=== PATIENT | male | born 1950 | race Caucasian/White ===

== ENCOUNTER → 2020-07-17 | Outpatient (CLI) | payer MEDICARE ==
[2020-07-17 11:10] LABS: Basophils # (A) 0.1 k/uL (0-0.2); Basophils % (A) 1 %; Eosinophils # (A) 0.2 k/uL (0-0.7); Eosinophils % (A) 3 %; HCT 41.2 % (39.0-53.0); HGB 13.6 gm/dL (13.0-17.5); Lymphocytes # (A) 1.5 k/uL (1.0-4.8); Lymphocytes % (A) 22 %; MCH 29.6 pg (25.0-35.0); MCV 89.7 fL (80.0-100.0); Mean Platelet Volume 7.6; Monocytes # (A) 0.3 k/uL (0-1.0); Monocytes % (A) 5 %; Neutrophils # (A) 4.7 k/uL (1.3-7.7); Neutrophils % (A) 68 %; Platelet Count 197 k/uL (150-450); RBC 4.59 m/uL (4.30-5.90); RDW 13.6 % (11.5-15.5); WBC 6.9 k/uL (3.8-10.6)
[2020-07-17 16:18] LABS: Albumin/Globulin Ratio 1.67 (1.60-3.17); Anion Gap 7.5 mmol/L (4.00-12.00); BUN/Creat Ratio 17.27 Ratio (12.00-20.00); Calcium 9.2 mg/dL (8.7-10.3); Carbon Dioxide 25.5 mmol/L (21.6-31.8); Chol/HDL Ratio 3.35; Globulin 2.4 g/dL (1.6-3.3); LDL Cholesterol,Calculated 53.4 mg/dL (0.0-131.0); Non-African American GFR(CKD) 68.1 (60.0-200.0); Total Bilirubin 0.8 mg/dL (0.3-1.2); Total Protein 6.4 g/dL (6.2-8.2); VLDL Calculation 19.6 mg/dL (5.00-40.00)
[2020-07-17 16:25] LABS: PSA Annual Screen 1.3 ng/mL (0.0-4.0)
== END | disposition home or self-care (01) ==
LOC: LABWHC1 09:37
PROVIDERS: ATTEND Family Medicine
DX: E11.9 Type 2 diabetes mellitus without complications (principal); Z12.5 Encounter for screening for malignant neoplasm of prostate
CPT/HCPCS: 80061; 80053; 85025; 83036; 36415; G0103

== ENCOUNTER 2020-11-07 14:40 | Inpatient (IN) | payer MEDICARE ==
--- NOTE | 2020-11-07 14:53 | ED ---
SOB HPI - General Source: patient Mode of arrival: wheelchair Limitations: no limitations <Shad Delaney - Last Filed: 11/07/20 17:54> <Debby Gilliam - Last Filed: 11/16/20 00:11> - General Chief Complaint: Shortness of Breath Stated Complaint: +COVID, Low O2 Time Seen by Provider: 11/07/20 14:53 - History of Present Illness Initial Comments: 70-year-old male with history of CABG, CAD, hypertension and hyperlipidemia presenting to the emergency department with chief complaint of Covid. Patient states he was tested 5 days ago and was aware yesterday that he tested positive for Covid. Patient reports nausea vomiting and diarrhea. States is also feeling fatigued with no appetite. Patient reports very mild shortness of breath on exertion. Denies any chest pain. He is not a smoker nor history of asthma or COPD. Patient does report fevers and chills. States he has been taking Tylenol for fever. Denies any cough or URI-like symptoms. (Shad Delaney) - Related Data Home Medications Medication Instructions Recorded Confirmed Atorvastatin [Lipitor] 40 mg PO DAILY 06/08/16 11/07/20 Citalopram Hydrobromide [CeleXA] 10 mg PO DAILY 06/08/16 11/07/20 Ezetimibe [Zetia] 10 mg PO DAILY 06/08/16 11/07/20 Losartan [Cozaar] 50 mg PO DAILY 06/08/16 11/07/20 Metoprolol Tartrate [Lopressor] 50 mg PO BID 06/08/16 11/07/20 Tamsulosin [Flomax] 0.4 mg PO DAILY 06/08/16 11/07/20 metFORMIN HCL [Glucophage] 500 mg PO BID 06/08/16 11/07/20 Aspirin 325 mg PO DAILY 11/07/20 11/07/20 Allergies Allergy/AdvReac Type Severity Reaction Status Date / Time No Known Allergies Allergy Verified 11/07/20 17:24 Review of Systems ROS Other: All systems not noted in ROS Statement are negative. <Shad Delaney - Last Filed: 11/07/20 17:54> ROS Other: All systems not noted in ROS Statement are negative. <Debby Gilliam - Last Filed: 11/16/20 00:11> ROS Statement: Those systems with pertinent positive or pertinent negative responses have been documented in the HPI. Past Medical History Past Medical History: Diabetes Mellitus, Hyperlipidemia, Hypertension, Myocardial Infarction ([place]) Additional Past Medical History / Comment(s): Heart attacck 2006, triple bypass, diabetes type 2 2016 Last Myocardial Infarction Date:: 2005 History of Any Multi-Drug Resistant Organisms: None Reported Past Surgical History: Coronary Bypass/CABG Additional Past Surgical History / Comment(s): Left ankle surgery 2000 Past Anesthesia/Blood Transfusion Reactions: No Reported Reaction Past Psychological History: No Psychological Hx Reported Smoking Status: Never smoker Past Alcohol Use History: None Reported Past Drug Use History: None Reported <Shad Delaney - Last Filed: 11/07/20 17:54> General Exam Limitations: no limitations General appearance: alert, in no apparent distress, obese Head exam: Present: atraumatic, normocephalic, normal inspection Eye exam: Present: normal appearance, PERRL, EOMI Pupils: Present: normal accommodation ENT exam: Present: normal exam, normal oropharynx, mucous membranes moist, TM's normal bilaterally, normal external ear exam Neck exam: Present: normal inspection, full ROM. Absent: tenderness Respiratory exam: Present: normal lung sounds bilaterally, decreased breath sounds (Mild). Absent: respiratory distress, wheezes, rales, rhonchi, stridor, accessory muscle use Cardiovascular Exam: Present: regular rate, normal rhythm, normal heart sounds. Absent: systolic murmur, diastolic murmur GI/Abdominal exam: Present: soft. Absent: distended, tenderness, guarding, rebound Extremities exam: Present: normal inspection, full ROM, normal capillary refill, other (+2 ulnar and radial pulses bilaterally. +2 dorsalis pedis and posterior tibials bilateral.). Absent: tenderness, pedal edema, joint swelling, calf tenderness Back exam: Present: normal inspection, full ROM. Absent: tenderness, CVA tenderness (R), CVA tenderness (L) Neurological exam: Present: alert, oriented X3, normal gait Psychiatric exam: Present: normal affect, normal mood Skin exam: Present: warm, dry, intact, normal color <Shad Delaney - Last Filed: 11/07/20 17:54> Course Vital Signs 11/07/20 11/07/20 11/07/20 14:43 14:50 15:05 Temperature 101.7 F H 101.7 F H 101.7 F H Pulse Rate 89 89 90 Respiratory 18 18 18 Rate Blood Pressure 116/79 143/81 142/71 O2 Sat by Pulse 89 L 95 95 Oximetry 11/07/20 11/07/20 11/07/20 15:20 15:35 15:52 Temperature 100.7 F H 100.5 F H 102.1 F H Pulse Rate 92 92 93 Respiratory 18 18 18 Rate Blood Pressure 132/78 143/70 129/91 O2 Sat by Pulse 96 93 L 96 Oximetry 11/07/20 11/07/20 17:16 19:05 Temperature 99.4 F 98.5 F Pulse Rate 79 77 Respiratory 18 18 Rate Blood Pressure 134/67 124/75 O2 Sat by Pulse 96 95 Oximetry Medical Decision Making - Lab Data Result diagrams: 11/07/20 15:18 11/07/20 15:18 <Shad Delaney - Last Filed: 11/07/20 17:54> - Lab Data Result diagrams: 11/14/20 03:41 11/14/20 03:41 <Debby Gilliam - Last Filed: 11/16/20 00:11> - Medical Decision Making 70-year-old male with history of CABG, CAD, hypertension and hyperlipidemia presenting to the emergency department with chief complaint of Covid. On physical examination, patient is clear to auscultation. Patient is 89% on room air. He only reports mild shortness of breath but no chest pain. Initial troponin of 1.01. CT of the chest shows no signs of a pulmonary embolism but there is patchy opacities with high likelihood of Covid pneumonia. CBC, CMP unremarkable. Coags within normal limits. Patient has elevated LDH and CRP. Patient will be admitted for further medical management. Case discussed with Admitting is DR lori Clemente on consult (Shad Delaney) I was available for consultation in the emergency department. The history and physical exam were done by the midlevel provider. I was consulted for this patients care. I reviewed the case with the midlevel provider and based on their presentation of the patient, I agree with the assessment, medical decision making and plan of care as documented. Chart was dictated using [employer] dictation software. Attempts were made to correct any dictation errors however some typographical errors may persist. Patient was seen during a national state of emergency due to the Covid-19 pandemic. (Debby Gilliam) - Lab Data Lab Results 11/07/20 11/07/20 11/07/20 Range/Units 15:18 15:18 15:18 WBC 5.9 (3.8-10.6) k/uL RBC 4.71 (4.30-5.90) m/uL Hgb 14.2 (13.0-17.5) gm/dL Hct 40.9 (39.0-53.0) % MCV 86.8 (80.0-100.0) fL MCH 30.1 (25.0-35.0) pg MCHC 34.6 (31.0-37.0) g/dL RDW 13.2 (11.5-15.5) % Plt Count 153 (150-450) k/uL MPV 7.4 Neutrophils % 80 % Lymphocytes % 13 % Monocytes % 6 % Eosinophils % 0 % Basophils % 0 % Neutrophils # 4.7 (1.3-7.7) k/uL Lymphocytes # 0.7 L (1.0-4.8) k/uL Monocytes # 0.3 (0-1.0) k/uL Eosinophils # 0.0 (0-0.7) k/uL Basophils # 0.0 (0-0.2) k/uL PT 10.5 (9.0-12.0) sec INR 1.0 (<1.2) APTT 25.7 (22.0-30.0) sec D-Dimer 1.01 H (<0.60) mg/L FEU Sodium 135 L (137-145) mmol/L Potassium 3.9 (3.5-5.1) mmol/L Chloride 104 (98-107) mmol/L Carbon Dioxide 26 (22-30) mmol/L Anion Gap 5 mmol/L BUN 17 (9-20) mg/dL Creatinine 0.79 (0.66-1.25) mg/dL Est GFR (CKD-EPI)AfAm >90 (>60 ml/min/1.73 sqM) Est GFR (CKD-EPI)NonAf >90 (>60 ml/min/1.73 sqM) Glucose 163 H (74-99) mg/dL Plasma Lactic Acid Jewel (0.7-2.0) mmol/L Calcium 8.5 (8.4-10.2) mg/dL Magnesium 1.6 (1.6-2.3) mg/dL Ferritin 417.3 H (22.0-322.0) ng/mL Total Bilirubin 0.7 (0.2-1.3) mg/dL AST 38 (17-59) U/L ALT 30 (4-49) U/L Alkaline Phosphatase 52 (38-126) U/L Lactate Dehydrogenase 842 H (313-618) U/L C-Reactive Protein 142.0 H (<10.0) mg/L Total Protein 6.9 (6.3-8.2) g/dL Albumin 3.6 (3.5-5.0) g/dL Procalcitonin (0.02-0.09) ng/mL 11/07/20 11/07/20 Range/Units 15:18 15:18 WBC (3.8-10.6) k/uL RBC (4.30-5.90) m/uL Hgb (13.0-17.5) gm/dL Hct (39.0-53.0) % MCV (80.0-100.0) fL MCH (25.0-35.0) pg MCHC (31.0-37.0) g/dL RDW (11.5-15.5) % Plt Count (150-450) k/uL MPV Neutrophils % % Lymphocytes % % Monocytes % % Eosinophils % % Basophils % % Neutrophils # (1.3-7.7) k/uL Lymphocytes # (1.0-4.8) k/uL Monocytes # (0-1.0) k/uL Eosinophils # (0-0.7) k/uL Basophils # (0-0.2) k/uL PT (9.0-12.0) sec INR (<1.2) APTT (22.0-30.0) sec D-Dimer (<0.60) mg/L FEU Sodium (137-145) mmol/L Potassium (3.5-5.1) mmol/L Chloride (98-107) mmol/L Carbon Dioxide (22-30) mmol/L Anion Gap mmol/L BUN (9-20) mg/dL Creatinine (0.66-1.25) mg/dL Est GFR (CKD-EPI)AfAm (>60 ml/min/1.73 sqM) Est GFR (CKD-EPI)NonAf (>60 ml/min/1.73 sqM) Glucose (74-99) mg/dL Plasma Lactic Acid Jewel 1.3 (0.7-2.0) mmol/L Calcium (8.4-10.2) mg/dL Magnesium (1.6-2.3) mg/dL Ferritin (22.0-322.0) ng/mL Total Bilirubin (0.2-1.3) mg/dL AST (17-59) U/L ALT (4-49) U/L Alkaline Phosphatase (38-126) U/L Lactate Dehydrogenase (313-618) U/L C-Reactive Protein (<10.0) mg/L Total Protein (6.3-8.2) g/dL Albumin (3.5-5.0) g/dL Procalcitonin 0.11 H (0.02-0.09) ng/mL - EKG Data EKG Comments: Sinus rhythm, Q waves in lead 3 Ventricular rate 91, AR 144, QRS 94, QTC 437. (Shad Delaney) Disposition Is patient prescribed a controlled substance at d/c from ED?: No Time of Disposition: 17:57 <Shad Delaney - Last Filed: 11/07/20 17:54> <Debby Gilliam - Last Filed: 11/16/20 00:11> Clinical Impression: Pneumonia due to COVID-19 virus, Hypoxemia Disposition: ADMITTED IP TO THIS HOSP Condition: Good
[2020-11-07] MEDS ORDERED: ACETAMINOPHEN TAB 500 MG TAB PO STA (14:56)
[2020-11-07 15:30] LABS: Basophils % (A) 0 %; Eosinophils % (A) 0 %; HCT 40.9 % (39.0-53.0); HGB 14.2 gm/dL (13.0-17.5); Lymphocytes # (A) 0.7 k/uL (1.0-4.8); Lymphocytes % (A) 13 %; MCH 30.1 pg (25.0-35.0); MCHC 34.6 g/dL (31.0-37.0); MCV 86.8 fL (80.0-100.0); Mean Platelet Volume 7.4; Monocytes # (A) 0.3 k/uL (0-1.0); Monocytes % (A) 6 %; Neutrophils # (A) 4.7 k/uL (1.3-7.7); Neutrophils % (A) 80 %; Platelet Count 153 k/uL (150-450); RBC 4.71 m/uL (4.30-5.90); RDW 13.2 % (11.5-15.5); WBC 5.9 k/uL (3.8-10.6)
[2020-11-07 15:45] LABS: ALT 30 U/L (4-49); AST 38 U/L (17-59); African American GFR (CKD) >90 (>60 ml/min/1.73 sqM); Albumin 3.6 g/dL (3.5-5.0); Alkaline Phosphatase 52 U/L (38-126); Anion Gap 5 mmol/L; Blood Urea Nitrogen 17 mg/dL (9-20); Calcium 8.5 mg/dL (8.4-10.2); Carbon Dioxide 26 mmol/L (22-30); Chloride 104 mmol/L (98-107); Glucose 163 mg/dL (74-99); LDH 842 U/L (313-618); Magnesium 1.6 mg/dL (1.6-2.3); Non-African American GFR(CKD) >90 (>60 ml/min/1.73 sqM); Potassium 3.9 mmol/L (3.5-5.1); Sodium 135 mmol/L (137-145); Total Bilirubin 0.7 mg/dL (0.2-1.3); Total Protein 6.9 g/dL (6.3-8.2)
[2020-11-07 15:49] LABS: Partial Thromboplastin Time 25.7 sec (22.0-30.0); Prothrombin Time 10.5 sec (9.0-12.0)
[2020-11-07 15:52] LABS: D-Dimer 1.01 mg/L FEU (<0.60)
--- NOTE | 2020-11-07 15:52 | XR ---
EXAM: XR Chest, 1 View CLINICAL HISTORY: ITS.REASON XR Reason: Suspected COVID-19 pneumonia TECHNIQUE: Frontal view of the chest. COMPARISON: None FINDINGS: Hardware: None. Lungs/pleura: Patchy opacities predominantly in the mid and lower lungs. Small pleural effusions are not excluded. Heart/mediastinum: Enlargement of the cardiac silhouette. Atherosclerotic calcifications in the aorta. Soft tissues: Unremarkable. Bones: No acute fracture. Degenerative changes of the spine. Upper abdomen: Normal. IMPRESSION: Patchy opacities predominantly in the mid and lower lungs which may represent an infectious/inflammatory process versus edema. Small pleural effusions are not excluded.
--- NOTE | 2020-11-07 17:13 | CT ---
EXAM: CT Angiography Chest With Intravenous Contrast CLINICAL HISTORY: ITS.REASON CT Reason: pe suspected, +dimer TECHNIQUE: Axial computed tomographic angiography images of the chest with intravenous contrast. CTDI is 18.2 mGy and DLP is 599 mGy-cm. This CT exam was performed using one or more of the following dose reduction techniques: automated exposure control, adjustment of the mA and/or kV according to patient size, and/or use of iterative reconstruction technique. MIP reconstructed images were created and reviewed. COMPARISON: Chest radiograph on 11/07/2020 FINDINGS: Pulmonary arteries: No central or large pulmonary embolus identified. Evaluation of the pulmonary arterial branches is limited by motion artifact. Aorta: No aortic aneurysm or dissection. Lungs: Patchy groundglass opacities and densities throughout the for Covid 19 infection. Pleural space: Unremarkable. No significant effusion. No pneumothorax. Heart: Median sternotomy and CABG changes. No significant pericardial effusion. No evidence of RV dysfunction. Mediastinum: Nonspecific prominent mediastinal lymph nodes. Bones/joints: Degenerative changes of the spine. No acute fracture. No dislocation. Soft tissues: Unremarkable. Lymph nodes: Unremarkable. No enlarged lymph nodes. Liver: Small hepatic cysts. IMPRESSION: 1. No central or large pulmonary embolus identified. Evaluation of the pulmonary arterial branches is limited by motion artifact. 2. No aortic aneurysm or dissection. 3. Patchy ground-glass opacities and densities throughout the for Covid 19 infection.
[2020-11-07] MEDS ORDERED: NALOXONE 0.4 MG/ML 1 ML VIAL IV PRN (17:51)
[2020-11-07] MEDS ORDERED: HYDROmorphone 1 MG/ML 1 ML SYRINGE IVP PRN (17:51)
[2020-11-07] MEDS ORDERED: MORPHINE SULFATE 4 MG/ML SYRINGE IV PRN (17:51)
[2020-11-07] MEDS ORDERED: LORazepam 2 MG/ML INJ IV PRN (17:51)
[2020-11-07] MEDS ORDERED: ONDANSETRON 4 MG/2 ML VIAL IVP PRN (17:51)
[2020-11-07] MEDS ORDERED: HYDROmorphone 0.5 MG/0.5 ML SYRINGE IVP PRN (17:51)
[2020-11-07] MEDS: SODIUM CHLORIDE 0.9% 1,000 ML IV SCH (19:15)
[2020-11-07 21:24] LABS: Ferritin 417.3 ng/mL (22.0-322.0)
[2020-11-08] MEDS: ACETAMINOPHEN TAB 325 MG TAB PO PRN (05:51)
[2020-11-08] MEDS: SODIUM CHLORIDE 0.9% 1,000 ML IV SCH (08:40)
[2020-11-08] MEDS: TAMSULOSIN 0.4 MG CAP.ER.24H PO SCH (09:56)
[2020-11-08] MEDS: dexAMETHasone 2 MG TAB PO SCH (09:57)
[2020-11-08] MEDS: ENOXAPARIN 40 MG/0.4 ML SYRINGE SQ SCH (09:57)
[2020-11-08] MEDS: CITALOPRAM HYDROBROMIDE 10 MG TAB PO SCH (09:57)
[2020-11-08] MEDS: METOPROLOL TARTRATE 50 MG TAB PO SCH ×2 (09:57→22:20)
--- NOTE | 2020-11-08 12:14 | P.HPIM ---
History of Present Illness Patient is pleasant 70-year-old male came in with complaints of shortness of breath presently on 2 L of oxygen. Patient was having symptoms since last Tuesday and was diagnosed with Covid 19 last Tuesday. Patient is still having fevers. Patient was having nausea vomiting as well as diarrhea which improved at this time. Patient is comparing of cough and generalized body aches. Review of Systems REVIEW OF SYSTEMS: CONSTITUTIONAL: As mentioned in HPI HEENT: No recent visual problems or hearing problems. Denied any sore throat. CARDIOVASCULAR: No chest pain, orthopnea, PND, no palpitations, no syncope. PULMONARY: no hemoptysis. GASTROINTESTINAL: No diarrhea, no nausea, no vomiting, no abdominal pain. NEUROLOGICAL: No headaches, no weakness, no numbness. HEMATOLOGICAL: Denies any bleeding or petechiae. GENITOURINARY: Denies any burning micturition, frequency, or urgency. MUSCULOSKELETAL/RHEUMATOLOGICAL: Denies any joint pain, swelling, or any muscle pain. ENDOCRINE: Denies any polyuria or polydipsia. The rest of the 14-point review of systems is negative. Past Medical History Past Medical History: Diabetes Mellitus, Hyperlipidemia, Hypertension, Myocardial Infarction ([place]) Additional Past Medical History / Comment(s): Heart attack 2006, triple bypass, diabetes type 2 2016 Last Myocardial Infarction Date:: 2005 History of Any Multi-Drug Resistant Organisms: None Reported Past Surgical History: Coronary Bypass/CABG Additional Past Surgical History / Comment(s): Left ankle surgery 2000 Past Anesthesia/Blood Transfusion Reactions: No Reported Reaction Past Psychological History: No Psychological Hx Reported Smoking Status: Never smoker Past Alcohol Use History: None Reported Additional Past Alcohol Use History / Comment(s): none Past Drug Use History: None Reported Medications and Allergies Home Medications Medication Instructions Recorded Confirmed Type Atorvastatin [Lipitor] 40 mg PO DAILY 06/08/16 11/07/20 History Citalopram Hydrobromide [CeleXA] 10 mg PO DAILY 06/08/16 11/07/20 History Ezetimibe [Zetia] 10 mg PO DAILY 06/08/16 11/07/20 History Losartan [Cozaar] 50 mg PO DAILY 06/08/16 11/07/20 History Metoprolol Tartrate [Lopressor] 50 mg PO BID 06/08/16 11/07/20 History Tamsulosin [Flomax] 0.4 mg PO DAILY 06/08/16 11/07/20 History metFORMIN HCL [Glucophage] 500 mg PO BID 06/08/16 11/07/20 History Aspirin 325 mg PO DAILY 11/07/20 11/07/20 History Allergies Allergy/AdvReac Type Severity Reaction Status Date / Time No Known Allergies Allergy Verified 11/07/20 17:24 Physical Exam Vitals: Vital Signs Temp Pulse Pulse Resp BP BP Pulse Ox 11/08/20 05:00 100.6 F H 86 18 124/63 91 L 11/07/20 20:00 98.1 F 87 18 126/76 93 L 11/07/20 19:35 18 11/07/20 19:05 98.5 F 77 18 124/75 95 11/07/20 17:16 99.4 F 79 18 134/67 96 11/07/20 15:52 102.1 F H 93 18 129/91 96 11/07/20 15:35 100.5 F H 92 18 143/70 93 L 11/07/20 15:20 100.7 F H 92 18 132/78 96 11/07/20 15:05 101.7 F H 90 18 142/71 95 11/07/20 14:50 101.7 F H 89 18 143/81 95 11/07/20 14:43 101.7 F H 89 18 116/79 89 L Intake and Output 11/07/20 11/08/20 11/08/20 22:59 06:59 14:59 Intake Total 1400 Balance 1400 Intake: Intake, IV Titration 900 Amount Sodium Chloride 0.9% 1, 900 000 ml @ 75 mls/hr IV . [id number] [facility] Rx#:[id number] Oral 500 Other: Voiding Method Toilet Toilet Urinal Urinal # Voids 3 Weight 102.058 kg PHYSICAL EXAMINATION: GENERAL: The patient is alert and oriented x3, not in any acute distress. Well developed, well nourished. HEENT: Pupils are round and equally reacting to light. EOMI. No scleral icterus. No conjunctival pallor. Normocephalic, atraumatic. No pharyngeal erythema. No thyromegaly. CARDIOVASCULAR: S1 and S2 present. No murmurs, rubs, or gallops. PULMONARY: Chest is clear to auscultation, no wheezing or crackles. ABDOMEN: Soft, nontender, nondistended, normoactive bowel sounds. No palpable organomegaly. MUSCULOSKELETAL: No joint swelling or deformity. EXTREMITIES: No cyanosis, clubbing, or pedal edema. NEUROLOGICAL: Gross neurological examination did not reveal any focal deficits. SKIN: No rashes. Note: Because of COVID 19 isolation, some of the history and physical exam findings are indirect and obtained from nursing staff, and other physician examinations to avoid unnecessary contact with the patient. Results CBC & Chem 7: 11/07/20 15:18 11/07/20 15:18 Labs: Abnormal Lab Results - Last 24 Hours (Table) 11/07/20 11/07/20 11/07/20 Range/Units 15:18 15:18 15:18 Lymphocytes # 0.7 L (1.0-4.8) k/uL D-Dimer 1.01 H (<0.60) mg/L FEU Sodium 135 L (137-145) mmol/L Glucose 163 H (74-99) mg/dL Ferritin 417.3 H (22.0-322.0) ng/mL Lactate Dehydrogenase 842 H (313-618) U/L C-Reactive Protein 142.0 H (<10.0) mg/L Procalcitonin (0.02-0.09) ng/mL 11/07/20 Range/Units 15:18 Lymphocytes # (1.0-4.8) k/uL D-Dimer (<0.60) mg/L FEU Sodium (137-145) mmol/L Glucose (74-99) mg/dL Ferritin (22.0-322.0) ng/mL Lactate Dehydrogenase (313-618) U/L C-Reactive Protein (<10.0) mg/L Procalcitonin 0.11 H (0.02-0.09) ng/mL Thrombosis Risk Factor Assmnt - Choose All That Apply Any of the Below Risk Factors Present?: Yes Each Factor Represents 1 point: Obesity (BMI >25) Other Risk Factors: Yes Each Risk Factor Represents 2 Points: Age 61-74 years Other congenital or acquired thrombophilia - If yes, enter type in comment: No Thrombosis Risk Factor Assessment Total Risk Factor Score: 3 Thrombosis Risk Factor Assessment Level: Moderate Risk Assessment and Plan Plan: -Shortness of breath: Secondary to covid 19 pneumonia. Patient will continued on Decadron pulmonary evaluated the patient will monitor inflammatory markers which are present elevated patient has elevated d-dimer to rule out pulmonary embolism patient is on Lovenox at this time. -Type 2 diabetes mellitus: Patient did sugars are expected to go because of Decadron patient will be started on sliding scale metformin will be held -Hyperlipidemia -Hypertension -Coronary artery disease with bypass surgery in the past For above-mentioned chronic problems patient will be started and continued on appropriate home medications.
--- NOTE | 2020-11-08 12:42 | P.CNPUL ---
History of Present Illness Consult date: 11/08/20 Requesting physician: Krissy Laura Reason for consult: other (CoVID 19 infection) Chief complaint: Weakness, nausea, vomiting, diarrhea History of present illness: This is a very pleasant 70-year-old gentleman with a known history of coronary artery disease with previous coronary artery bypass grafting, diabetes mellitus, hypertension, hyperlipidemia, lifelong nonsmoker. 6 days ago the patient had developed nausea, vomiting, diarrhea. He also had complaints of fatigue. Poor appetite. Mild shortness of breath with a dry nonproductive cough. He did test positive for CoVID 19. He is seen today in consultation on the regular medical floor. He is currently resting quite comfortably in bed. He is maintaining O2 saturations in the low 90s on 2 L/m per nasal cannula. Temperature 100.6. Blood pressure stable. White count 5.9. Hemoglobin 14.2. Lymphocytes 0.7. INR 1.0. D-dimer 1.01. Sodium 135. Potassium 3.9. Creatinine 0.79. LDH 842. C-reactive protein 142. Pro-calcitonin 0.11. Chest x-ray reveals patchy opacities in the mid and lower lungs bilaterally. CT angiogram revealed no pulmonary emboli. Patchy groundglass opacities and densities throughout typical of CoVID 19 pneumonitis. Review of Systems REVIEW OF SYSTEMS: CONSTITUTIONAL: Fatigue, weakness. Denies any recent significant weight loss or weight gain. EYES: Denies change in vision. EARS, NOSE, MOUTH, THROAT: Denies headaches, denies sore throat. CARDIOVASCULAR: Denies chest pain, palpitations or syncopal episodes. RESPIRATORY: Positive for shortness of breath, cough, congestion no hemoptysis. GASTROINTESTINAL: Positive for nausea, vomiting, diarrhea, poor appetite GENITOURINARY: Denies hematuria, denies infections. MUSKULOSKELETAL: Denies pain, denies swelling. INTEGUMENTARY: Denies rash, denies eczema. NEUROLOGICAL: Denies recent memory loss, no recent seizure activity. PSYCHIATRIC: Denies anxiety, denies depression. HEMATOLOGIC/LYMPHATIC: Denies anemia, denies enlarged lymph nodes. Past Medical History Past Medical History: Diabetes Mellitus, Hyperlipidemia, Hypertension, Myocardial Infarction ([place]) Additional Past Medical History / Comment(s): Heart attack 2006, triple bypass, diabetes type 2 2016 Last Myocardial Infarction Date:: 2005 History of Any Multi-Drug Resistant Organisms: None Reported Past Surgical History: Coronary Bypass/CABG Additional Past Surgical History / Comment(s): Left ankle surgery 2000 Past Anesthesia/Blood Transfusion Reactions: No Reported Reaction Past Psychological History: No Psychological Hx Reported Smoking Status: Never smoker Past Alcohol Use History: None Reported Additional Past Alcohol Use History / Comment(s): none Past Drug Use History: None Reported Medications and Allergies Home Medications Medication Instructions Recorded Confirmed Type Atorvastatin [Lipitor] 40 mg PO DAILY 06/08/16 11/07/20 History Citalopram Hydrobromide [CeleXA] 10 mg PO DAILY 06/08/16 11/07/20 History Ezetimibe [Zetia] 10 mg PO DAILY 06/08/16 11/07/20 History Losartan [Cozaar] 50 mg PO DAILY 06/08/16 11/07/20 History Metoprolol Tartrate [Lopressor] 50 mg PO BID 06/08/16 11/07/20 History Tamsulosin [Flomax] 0.4 mg PO DAILY 06/08/16 11/07/20 History metFORMIN HCL [Glucophage] 500 mg PO BID 06/08/16 11/07/20 History Aspirin 325 mg PO DAILY 11/07/20 11/07/20 History Allergies Allergy/AdvReac Type Severity Reaction Status Date / Time No Known Allergies Allergy Verified 11/07/20 17:24 Physical Exam Vitals: Vital Signs Temp Pulse Pulse Resp BP BP Pulse Ox 11/08/20 05:00 100.6 F H 86 18 124/63 91 L 11/07/20 20:00 98.1 F 87 18 126/76 93 L 11/07/20 19:35 18 11/07/20 19:05 98.5 F 77 18 124/75 95 11/07/20 17:16 99.4 F 79 18 134/67 96 11/07/20 15:52 102.1 F H 93 18 129/91 96 11/07/20 15:35 100.5 F H 92 18 143/70 93 L 11/07/20 15:20 100.7 F H 92 18 132/78 96 11/07/20 15:05 101.7 F H 90 18 142/71 95 11/07/20 14:50 101.7 F H 89 18 143/81 95 11/07/20 14:43 101.7 F H 89 18 116/79 89 L Intake and Output 11/07/20 11/08/20 11/08/20 22:59 06:59 14:59 Intake Total 1400 Balance 1400 Intake: Intake, IV Titration 900 Amount Sodium Chloride 0.9% 1, 900 000 ml @ 75 mls/hr IV . [id number] [facility] Rx#:[id number] Oral 500 Other: Voiding Method Toilet Toilet Urinal Urinal # Voids 3 Weight 102.058 kg GENERAL EXAM: Alert, active, very pleasant 70-year-old gentleman, on 2 L nasal cannula, comfortable in no apparent distress. HEAD: Normocephalic. EYES: Normal reaction of pupils, equal size. NOSE: Clear with pink turbinates. THROAT: No erythema or exudates. NECK: No masses, no JVD. CHEST: No chest wall deformity. LUNGS: Equal air entry with crackles in the bilateral posterior bases. CVS: S1 and S2 normal with no audible murmur, regular rhythm. ABDOMEN: No hepatosplenomegaly, normal bowel sounds, no guarding or rigidity. SPINE: No scoliosis or deformity SKIN: No rashes CENTRAL NERVOUS SYSTEM: No focal deficits, tone is normal in all 4 extremities. EXTREMITIES: There is no peripheral edema. No clubbing, no cyanosis. Peripheral pulses are intact. Results - Laboratory Findings CBC and BMP: 11/07/20 15:18 11/07/20 15:18 PT/INR, D-dimer PT 10.5 sec (9.0-12.0) 11/07/20 15:18 INR 1.0 (<1.2) 11/07/20 15:18 D-Dimer 1.01 mg/L FEU (<0.60) H 11/07/20 15:18 Abnormal lab findings: Abnormal Labs 11/07/20 11/07/20 11/07/20 15:18 15:18 15:18 Lymphocytes # 0.7 L D-Dimer 1.01 H Sodium 135 L Glucose 163 H Ferritin 417.3 H Lactate Dehydrogenase 842 H C-Reactive Protein 142.0 H Procalcitonin 11/07/20 15:18 Lymphocytes # D-Dimer Sodium Glucose Ferritin Lactate Dehydrogenase C-Reactive Protein Procalcitonin 0.11 H - Diagnostic Findings Chest x-ray: image reviewed CT scan - chest: image reviewed Assessment and Plan Assessment: 1 CoVID 19 infection with nausea, vomiting, diarrhea 2 Acute hypoxic respiratory failure secondary to CoVID 19 pneumonitis 3 Febrile illness secondary to above 4 Elevated inflammatory markers secondary to above 5 History of coronary artery disease with previous coronary artery bypass grafting 6 Hyperlipidemia 7 Hypertension 8 Diabetes mellitus Plan: The patient was seen and evaluated by Dr. Miles Chest x-ray, CAT scan of the chest and labs reviewed We will initiate Remdesivir Continue Decadron, Lovenox Add Pepcid, melatonin, vitamin C, vitamin D, zinc Follow-up inflammatory markers and chest x-ray in a.m. We will continue to follow and make further recommendations based on his clinical status I, the cosigning physician, performed a history & physical examination of the patient. Lungs sounds echoes in the bilateral posterior bases. Maintaining good O2 saturations in the 90s on 2 L/m per nasal cannula. I discussed the assessment and plan of care with my nurse practitioner, Angélica Rizzo. I attest to the above consultation as dictated by her. Time with Patient: Greater than 30
[2020-11-08] MEDS ORDERED: REMDESIVIR 200 MG in SODIUM CHLORIDE 0.9% 250 ML IVPB ONE (13:00)
[2020-11-08] MEDS: INSULIN ASPART (NovoLOG) 100 UNIT/ML VIAL SQ SCH ×3 (13:20→22:21)
[2020-11-08] MEDS: FAMOTIDINE 20 MG TAB PO SCH (22:20)
[2020-11-08] MEDS: MELATONIN 5 MG TABLET PO SCH (22:21)
[2020-11-09] MEDS: SODIUM CHLORIDE 0.9% 1,000 ML IV SCH ×3 (03:24→22:23)
[2020-11-09 06:44] LABS: HCT 36.1 % (39.0-53.0); HGB 12.9 gm/dL (13.0-17.5); MCH 31.4 pg (25.0-35.0); MCHC 35.8 g/dL (31.0-37.0); MCV 87.6 fL (80.0-100.0); Mean Platelet Volume 8.2; Platelet Count 145 k/uL (150-450); RBC 4.12 m/uL (4.30-5.90); RDW 13.2 % (11.5-15.5); WBC 10.2 k/uL (3.8-10.6)
[2020-11-09] MEDS: INSULIN ASPART (NovoLOG) 100 UNIT/ML VIAL SQ SCH ×4 (07:52→22:18)
[2020-11-09] MEDS: ASCORBIC ACID 500 MG TAB PO SCH (07:53)
[2020-11-09] MEDS: ATORVASTATIN 40 MG TAB PO SCH (07:53)
[2020-11-09] MEDS: ASPIRIN 325 MG TAB PO SCH (07:53)
[2020-11-09] MEDS: ENOXAPARIN 40 MG/0.4 ML SYRINGE SQ SCH (07:54)
[2020-11-09] MEDS: CHOLECALCIFEROL 1,000 UNIT TAB PO SCH (07:54)
[2020-11-09] MEDS: CITALOPRAM HYDROBROMIDE 10 MG TAB PO SCH (07:54)
[2020-11-09] MEDS: dexAMETHasone 2 MG TAB PO SCH (07:54)
[2020-11-09] MEDS: FAMOTIDINE 20 MG TAB PO SCH ×2 (07:55→22:21)
[2020-11-09] MEDS: EZETIMIBE 10 MG TAB PO SCH (07:55)
[2020-11-09] MEDS: TAMSULOSIN 0.4 MG CAP.ER.24H PO SCH (07:55)
[2020-11-09] MEDS: METOPROLOL TARTRATE 50 MG TAB PO SCH ×2 (07:55→22:22)
[2020-11-09] MEDS: ZINC SULFATE 220 MG CAP PO SCH (07:55)
[2020-11-09] MEDS: LOSARTAN 50 MG TAB PO SCH (07:55)
[2020-11-09 09:40] LABS: Glucose,Whole Blood 252 mg/dL (75-99)
[2020-11-09 09:40] LABS: Glucose,Whole Blood 192 mg/dL (75-99)
[2020-11-09 09:41] LABS: Glucose,Whole Blood 159 mg/dL (75-99)
[2020-11-09 09:41] LABS: Glucose,Whole Blood 196 mg/dL (75-99)
[2020-11-09 09:46] LABS: African American GFR (CKD) 104.9 (60.0-200.0); Anion Gap 10.5 mmol/L (4.00-12.00); BUN/Creat Ratio 26.25 Ratio (12.00-20.00); Calcium 8.4 mg/dL (8.7-10.3); Carbon Dioxide 24.5 mmol/L (21.6-31.8); Non-African American GFR(CKD) 90.5 (60.0-200.0); Potassium 3.8 mmol/L (3.5-5.5)
--- NOTE | 2020-11-09 11:19 | P.PN ---
Subjective 70-year-old male came in with complaints of shortness of breath presently on 2 L of oxygen. Patient was having symptoms since last Tuesday and was diagnosed with Covid 19 last Tuesday. Patient is still having fevers. Patient was having nausea vomiting as well as diarrhea which improved at this time. Patient is comparing of cough and generalized body aches. 11/09/2020 Presently on 4 L of oxygen although feels better. Patient is presently on Remdesivir day 2 Constitutional: Denied any fatigue denied any fever. Cardio vascular: denied any chest pain, palpitations Gastrointestinal denied any nausea vomiting Pulmonary: Denied any shortness of breath cough Neurologic denied any new focal deficits All inpatient medications were reviewed and appropriate changes in these medications as dictated in the interval history and assessment and plan. Objective - Vital Signs Vital signs: Vital Signs Temp 97.9 F 11/09/20 05:57 Pulse 86 11/09/20 08:25 Resp 20 11/09/20 08:25 BP 126/56 11/09/20 05:57 Pulse Ox 89 L 11/09/20 10:16 Intake & Output 11/08/20 11/09/20 11/09/20 18:59 06:59 18:59 Intake Total 1200 Balance 1200 Intake: Blood Product 1200 Other: Voiding Method Toilet Toilet Toilet Urinal Urinal Urinal # Voids 3 2 2 - Exam PHYSICAL EXAMINATION: GENERAL: The patient is alert and oriented x3, not in any acute distress. Well developed, well nourished. HEENT: Pupils are round and equally reacting to light. EOMI. No scleral icterus. No conjunctival pallor. Normocephalic, atraumatic. No pharyngeal erythema. No thyromegaly. CARDIOVASCULAR: S1 and S2 present. No murmurs, rubs, or gallops. PULMONARY: Chest is clear to auscultation, no wheezing or crackles. ABDOMEN: Soft, nontender, nondistended, normoactive bowel sounds. No palpable organomegaly. MUSCULOSKELETAL: No joint swelling or deformity. EXTREMITIES: No cyanosis, clubbing, or pedal edema. NEUROLOGICAL: Gross neurological examination did not reveal any focal deficits. SKIN: No rashes. - Labs CBC & Chem 7: 11/09/20 05:59 11/09/20 05:59 Labs: Abnormal Lab Results - Last 24 Hours (Table) 11/08/20 11/08/20 11/08/20 Range/Units 12:52 17:17 21:14 RBC (4.30-5.90) m/uL Hgb (13.0-17.5) gm/dL Hct (39.0-53.0) % Plt Count (150-450) k/uL BUN/Creatinine Ratio (12.00-20.00) Ratio Glucose (70-110) mg/dL POC Glucose (mg/dL) 192 H 252 H 196 H (75-99) mg/dL Calcium (8.7-10.3) mg/dL 11/09/20 11/09/20 11/09/20 Range/Units 05:59 05:59 07:38 RBC 4.12 L (4.30-5.90) m/uL Hgb 12.9 L (13.0-17.5) gm/dL Hct 36.1 L (39.0-53.0) % Plt Count 145 L (150-450) k/uL BUN/Creatinine Ratio 26.25 H (12.00-20.00) Ratio Glucose 158 H (70-110) mg/dL POC Glucose (mg/dL) 159 H (75-99) mg/dL Calcium 8.4 L (8.7-10.3) mg/dL Microbiology - Last 24 Hours (Table) 11/07/20 15:24 Blood Culture - Preliminary Blood No Growth after 24 hours 11/07/20 15:18 Blood Culture - Preliminary Blood No Growth after 24 hours Assessment and Plan Plan: -Shortness of breath acute hypoxic respiratory failure: Secondary to covid 19 pneumonia. Patient will continued on Decadron pulmonary evaluated the patient will monitor inflammatory markers which are present elevated patient has elevated d-dimer to rule out pulmonary embolism patient is on Lovenox at this time. And patient is also on Remdesivir -Type 2 diabetes mellitus: Blood sugars are bit elevated because of Decadron patient will be started on sliding scale metformin will be held -Hyperlipidemia -Hypertension -Coronary artery disease with bypass surgery in the past For above-mentioned chronic problems patient will be started and continued on appropriate home medications.
[2020-11-09 12:00] LABS: Glucose,Whole Blood 265 mg/dL (75-99)
--- NOTE | 2020-11-09 12:31 | P.PN ---
Subjective Progress Note Date: 11/09/20 Principal diagnosis: CoVID 19 infection This is a very pleasant 70-year-old gentleman with a known history of coronary artery disease with previous coronary artery bypass grafting, diabetes mellitus, hypertension, hyperlipidemia, lifelong nonsmoker. 6 days ago the patient had de veloped nausea, vomiting, diarrhea. He also had complaints of fatigue. Poor appetite. Mild shortness of breath with a dry nonproductive cough. He did test positive for CoVID 19. He is seen today in consultation on the regular medical floor. He is currently resting quite comfortably in bed. He is maintaining O2 saturations in the low 90s on 2 L/m per nasal cannula. Temperature 100.6. Blood pressure stable. White count 5.9. Hemoglobin 14.2. Lymphocytes 0.7. INR 1.0. D-dimer 1.01. Sodium 135. Potassium 3.9. Creatinine 0.79. LDH 842. C-reactive protein 142. Pro-calcitonin 0.11. Chest x-ray reveals patchy opacities in the mid and lower lungs bilaterally. CT angiogram revealed no pulmonary emboli. Patchy groundglass opacities and densities throughout typical of CoVID 19 pneumonitis. The patient is seen today 11/09/2020 in follow-up on the regular medical floor. He is awake and alert in no acute distress. He is feeling about at her today compared to yesterday. He is requiring 4 L/m per nasal cannula to maintain O2 saturation 89-90%. He is afebrile. Hemodynamically stable. Blood cultures reveal no growth. White count 10.2. Hemoglobin 12.9. Sodium 140. Potassium 3.8. Creatinine 0.8. He remains on dexamethasone, Lovenox, vitamin supplements. This is day #2 of his Remdesivir. Objective - Vital Signs Vital signs: Vital Signs Temp 97.9 F 11/09/20 05:57 Pulse 86 11/09/20 08:25 Resp 20 11/09/20 08:25 BP 126/56 11/09/20 05:57 Pulse Ox 89 L 11/09/20 10:16 Intake & Output 11/08/20 11/09/20 11/09/20 18:59 06:59 18:59 Intake Total 1200 Balance 1200 Intake: Blood Product 1200 Other: Voiding Method Toilet Toilet Toilet Urinal Urinal Urinal # Voids 3 2 2 - Exam GENERAL EXAM: Alert, very pleasant 70-year-old gentleman, on 4 L nasal cannula, comfortable in no apparent distress. HEAD: Normocephalic. EYES: Normal reaction of pupils, equal size. NOSE: Clear with pink turbinates. THROAT: No erythema or exudates. NECK: No masses, no JVD. CHEST: No chest wall deformity. LUNGS: Equal air entry with crackles in the bilateral posterior bases. CVS: S1 and S2 normal with no audible murmur, regular rhythm. ABDOMEN: No hepatosplenomegaly, normal bowel sounds, no guarding or rigidity. SPINE: No scoliosis or deformity SKIN: No rashes CENTRAL NERVOUS SYSTEM: No focal deficits, tone is normal in all 4 extremities. EXTREMITIES: There is no peripheral edema. No clubbing, no cyanosis. Peripheral pulses are intact. - Labs CBC & Chem 7: 11/09/20 05:59 11/09/20 05:59 Labs: Abnormal Lab Results - Last 24 Hours (Table) 11/08/20 11/08/20 11/08/20 Range/Units 12:52 17:17 21:14 RBC (4.30-5.90) m/uL Hgb (13.0-17.5) gm/dL Hct (39.0-53.0) % Plt Count (150-450) k/uL BUN/Creatinine Ratio (12.00-20.00) Ratio Glucose (70-110) mg/dL POC Glucose (mg/dL) 192 H 252 H 196 H (75-99) mg/dL Calcium (8.7-10.3) mg/dL 11/09/20 11/09/20 11/09/20 Range/Units 05:59 05:59 07:38 RBC 4.12 L (4.30-5.90) m/uL Hgb 12.9 L (13.0-17.5) gm/dL Hct 36.1 L (39.0-53.0) % Plt Count 145 L (150-450) k/uL BUN/Creatinine Ratio 26.25 H (12.00-20.00) Ratio Glucose 158 H (70-110) mg/dL POC Glucose (mg/dL) 159 H (75-99) mg/dL Calcium 8.4 L (8.7-10.3) mg/dL 11/09/20 Range/Units 11:53 RBC (4.30-5.90) m/uL Hgb (13.0-17.5) gm/dL Hct (39.0-53.0) % Plt Count (150-450) k/uL BUN/Creatinine Ratio (12.00-20.00) Ratio Glucose (70-110) mg/dL POC Glucose (mg/dL) 265 H (75-99) mg/dL Calcium (8.7-10.3) mg/dL Microbiology - Last 24 Hours (Table) 11/07/20 15:24 Blood Culture - Preliminary Blood No Growth after 24 hours 11/07/20 15:18 Blood Culture - Preliminary Blood No Growth after 24 hours Assessment and Plan Assessment: 1 CoVID 19 infection with nausea, vomiting, diarrhea. 2 Acute hypoxic respiratory failure secondary to CoVID 19 pneumonitis, requiring 4 L/m per nasal cannula. He was initiated on Remdesivir 11/08/2020 3 Febrile illness secondary to above 4 Elevated inflammatory markers secondary to above 5 History of coronary artery disease with previous coronary artery bypass grafting 6 Hyperlipidemia 7 Hypertension 8 Diabetes mellitus Plan: The patient was seen and evaluated by Dr. Miles Continue Remdesivir Continue Decadron, Lovenox, Pepcid, melatonin, vitamin C, vitamin D, zinc Follow-up inflammatory markers and chest x-ray in a.m. We will continue to follow and make further recommendations based on his clinical status I, the cosigning physician, performed a history & physical examination of the patient. Lungs sounds with crackles in the bilateral posterior bases. Maintaining good O2 saturations in the 90s on 4 L/m per nasal cannula. I discussed the assessment and plan of care with my nurse practitioner, Angélica Rizzo. I attest to the above consultation as dictated by her.
[2020-11-09] MEDS: REMDESIVIR 100 MG in SODIUM CHLORIDE 0.9% 250 ML IVPB SCH (12:57)
[2020-11-09] MEDS: MAGNESIUM SULFATE-D5W PMX 1 GM in DEXTROSE/WATER 1 100ML.BAG IVPB SCH ×2 (15:33→17:00)
[2020-11-09 17:20] LABS: Glucose,Whole Blood 345 mg/dL (75-99)
[2020-11-09 20:33] LABS: Glucose,Whole Blood 356 mg/dL (75-99)
[2020-11-09] MEDS: MELATONIN 5 MG TABLET PO SCH (22:21)
[2020-11-10 07:19] LABS: Glucose,Whole Blood 214 mg/dL (75-99)
[2020-11-10] MEDS: ENOXAPARIN 40 MG/0.4 ML SYRINGE SQ SCH (07:37)
[2020-11-10] MEDS: INSULIN ASPART (NovoLOG) 100 UNIT/ML VIAL SQ SCH ×4 (07:37→21:21)
[2020-11-10] MEDS: ZINC SULFATE 220 MG CAP PO SCH (07:37)
[2020-11-10] MEDS: CITALOPRAM HYDROBROMIDE 10 MG TAB PO SCH (07:38)
[2020-11-10] MEDS: dexAMETHasone 2 MG TAB PO SCH (07:38)
[2020-11-10] MEDS: ASCORBIC ACID 500 MG TAB PO SCH (07:38)
[2020-11-10] MEDS: LOSARTAN 50 MG TAB PO SCH (07:38)
[2020-11-10] MEDS: EZETIMIBE 10 MG TAB PO SCH (07:38)
[2020-11-10] MEDS: FAMOTIDINE 20 MG TAB PO SCH ×2 (07:38→21:22)
[2020-11-10] MEDS: ASPIRIN 325 MG TAB PO SCH (07:38)
[2020-11-10] MEDS: METOPROLOL TARTRATE 50 MG TAB PO SCH ×2 (07:38→21:22)
[2020-11-10] MEDS: CHOLECALCIFEROL 1,000 UNIT TAB PO SCH (07:38)
[2020-11-10] MEDS: ATORVASTATIN 40 MG TAB PO SCH (07:39)
[2020-11-10] MEDS: TAMSULOSIN 0.4 MG CAP.ER.24H PO SCH (07:39)
--- NOTE | 2020-11-10 09:27 | XR ---
EXAMINATION TYPE: XR chest 1V DATE OF EXAM: 11/10/2020 COMPARISON: Prior chest x-ray and chest CT 11/07/2020 HISTORY: Covid pneumonitis TECHNIQUE: Single frontal view of the chest is obtained. FINDINGS: There is been progression of bilateral airspace disease. Heart appears enlarged. No eviden t pneumothorax or sizable effusion. Aorta is dense. Paratracheal adenopathy is again seen. IMPRESSION: Correlate for pneumonia, edema. There is prominence of the heart silhouette.
[2020-11-10 09:49] LABS: African American GFR (CKD) 110.8 (60.0-200.0); Anion Gap 6.2 mmol/L (4.00-12.00); BUN/Creat Ratio 35.71 Ratio (12.00-20.00); Carbon Dioxide 25.8 mmol/L (21.6-31.8); Non-African American GFR(CKD) 95.6 (60.0-200.0); Potassium 3.6 mmol/L (3.5-5.5)
[2020-11-10 12:25] LABS: Glucose,Whole Blood 206 mg/dL (75-99)
[2020-11-10] MEDS: REMDESIVIR 100 MG in SODIUM CHLORIDE 0.9% 250 ML IVPB SCH (12:52)
--- NOTE | 2020-11-10 13:41 | P.PN ---
Subjective Progress Note Date: 11/10/20 70-year-old male patient known history of CAD, bypass, hypertension diabetes mellitus and hyperlipidemia, was currently in the hospital for: 90 related pneumonia. The patient is currently on oxygen and his oxygen requirements of progressively got now. He was on 2 L and later on he was brought up to 4 L and then 5 L and currently is on 100% nonrebreather facemask. This morning, the patient desaturated and he had to be placed on the percent nonrebreather facemask. He is afebrile. No tachypnea. No significant shortness of breath and he feels fine. His chest x-rayshowed progression of the bilateral airspace disease. No evidence of any pneumothorax. No evidence of any mediastinal lymphadenopathy. The patient's d-dimer is at 0.92. C-reactive protein is at 10. LDH at 426. The patient remains on Decadron. The patient remains on Remdesivir in addition to the combination of vitamin C, vitamin D, zinc sulfate and melatonin. No altered mentation. No chest pain. No nausea. No vomiting. No abdominal pain. No other significant events overnight. Clinically, his code 90 related pneumonia is worsening the patient's oxidation is also worse and he has moved up to 100% nonrebreather facemask. Objective - Vital Signs Vital signs: Vital Signs Temp 97.6 F 11/10/20 05:00 Pulse 69 11/10/20 05:00 Resp 20 11/10/20 05:00 BP 136/75 11/10/20 05:00 Pulse Ox 91 L 11/10/20 05:00 Intake & Output 11/09/20 11/10/20 11/10/20 18:59 06:59 18:59 Intake Total 480 1100 Balance 480 1100 Intake: Intake, IV Titration 750 Amount Sodium Chloride 0.9% 1, 750 000 ml @ 75 mls/hr IV . [id number] Rx#:[id number] Oral 480 350 Other: Voiding Method Toilet Toilet Urinal Urinal # Voids 3 2 1 - Exam GENERAL EXAM: Alert, very pleasant 70-year-old gentleman, on 200% nonrebreather facemask, nasal cannula, comfortable in no apparent distress. HEAD: Normocephalic. EYES: Normal reaction of pupils, equal size. NOSE: Clear with pink turbinates. THROAT: No erythema or exudates. NECK: No masses, no JVD. CHEST: No chest wall deformity. LUNGS: Equal air entry with crackles in the bilateral posterior bases. CVS: S1 and S2 normal with no audible murmur, regular rhythm. ABDOMEN: No hepatosplenomegaly, normal bowel sounds, no guarding or rigidity. SPINE: No scoliosis or deformity SKIN: No rashes CENTRAL NERVOUS SYSTEM: No focal deficits, tone is normal in all 4 extremities. EXTREMITIES: There is no peripheral edema. No clubbing, no cyanosis. Peripheral pulses are intact. - Labs CBC & Chem 7: 11/09/20 05:59 11/10/20 05:13 Labs: Abnormal Lab Results - Last 24 Hours (Table) 11/09/20 11/09/20 11/10/20 Range/Units 17:14 20:30 05:13 D-Dimer (<0.60) mg/L FEU BUN/Creatinine Ratio 35.71 H (12.00-20.00) Ratio Glucose 216 H (70-110) mg/dL POC Glucose (mg/dL) 345 H 356 H (75-99) mg/dL Calcium 8.0 L (8.7-10.3) mg/dL Lactate Dehydrogenase 426 H (120-246) U/L C-Reactive Protein 10.0 H (0.0-0.8) mg/dL 11/10/20 11/10/20 11/10/20 Range/Units 05:13 07:15 12:14 D-Dimer 0.92 H (<0.60) mg/L FEU BUN/Creatinine Ratio (12.00-20.00) Ratio Glucose (70-110) mg/dL POC Glucose (mg/dL) 214 H 206 H (75-99) mg/dL Calcium (8.7-10.3) mg/dL Lactate Dehydrogenase (120-246) U/L C-Reactive Protein (0.0-0.8) mg/dL Microbiology - Last 24 Hours (Table) 11/07/20 15:24 Blood Culture - Preliminary Blood No Growth after 48 hours 11/07/20 15:18 Blood Culture - Preliminary Blood No Growth after 48 hours Assessment and Plan Plan: 1 CoVID 19 pneumonia with hypoxic respiratory failure in addition to some nausea and vomiting and diarrhea. The GI symptoms have subsided and the patient currently is more hypoxemic with worsening of the bilateral pulmonary infiltrates and interval progression and currently is on 100% nonrebreather fac emask. 2 Acute hypoxic respiratory failure secondary to CoVID 19 pneumonitis, currently on 100% nonrebreather facemask. No significant respiratory distress or use of accessory muscles of breathing. He is currently on Decadron. He was initiated on Remdesivir 11/08/2020 3 Febrile illness secondary to above 4 Elevated inflammatory markers secondary to above 5 History of coronary artery disease with previous coronary artery bypass grafting 6 Hyperlipidemia 7 Hypertension 8 Diabetes mellitus 9 CAD and previous history of coronary artery bypass surgery 10 obesity with a BMI of 33.2 11 BPH Plan: Keep the patient on the percent nonrebreather facemask Continue Remdesivir Continue Decadron Lovenox, Pepcid, melatonin, vitamin C, vitamin D, zinc Follow-up inflammatory markers and chest x-ray in a.m. May consider transferring this patient to the intensive care unit if the patient shows further worsening in his oxygenation status. He is calm and comfortable and is nontender any significant tachypnea or hemodynamic instability. For now, he'll be kept on the medical floor. We will continue to follow and make further recommendations based on his clinical status
--- NOTE | 2020-11-10 15:03 | P.PN ---
Subjective Progress Note Date: 11/10/20 70-year-old male came in with complaints of shortness of breath presently on 2 L of oxygen. Patient was having symptoms since last Tuesday and was diagnosed with Covid 19 last Tuesday. Patient is still having fevers. Patient was having nausea vomiting as well as diarrhea which improved at this time. Patient is comparing of cough and generalized body aches. 11/09/2020 Presently on 4 L of oxygen although feels better. Patient is presently on Remdesivir day 2 11/10/2020 Patient is seen and evaluated in follow-up and had some difficulty breathing and shortness of breath in the middle of the night and is currently on nonrebreather at 15 L and 88%. Patient continues to have dyspnea with any exertion. Pulmonary is following and patient is currently on remdesivir and will also continue with Lovenox, zinc, dexamethasone, and vitamin C supplements. Continue to monitor blood sugars closely as they are elevated most likely due to steroid and will continue with sliding scale at this time. Will repeat a.m. chest x-ray. Constitutional: Denied any fatigue denied any fever. Cardio vascular: denied any chest pain, palpitations Gastrointestinal denied any nausea vomiting Pulmonary: Denied any shortness of breath cough Neurologic denied any new focal deficits All inpatient medications were reviewed and appropriate changes in these medications as dictated in the interval history and assessment and plan. Objective - Vital Signs Vital signs: Vital Signs Temp 97.6 F 11/10/20 05:00 Pulse 69 11/10/20 05:00 Resp 20 11/10/20 05:00 BP 136/75 11/10/20 05:00 Pulse Ox 91 L 11/10/20 05:00 Intake & Output 11/09/20 11/10/20 11/10/20 18:59 06:59 18:59 Intake Total 480 1100 Balance 480 1100 Intake: Intake, IV Titration 750 Amount Sodium Chloride 0.9% 1, 750 000 ml @ 75 mls/hr IV . [id number] [facility] Rx#:[id number] Oral 480 350 Other: Voiding Method Toilet Toilet Urinal Urinal # Voids 3 2 1 - Exam GENERAL: The patient is alert and oriented x3, not in any acute distress. Well developed, well nourished. HEENT: Pupils are round and equally reacting to light. EOMI. No scleral icterus. No conjunctival pallor. Normocephalic, atraumatic. No pharyngeal erythema. No thyromegaly. CARDIOVASCULAR: S1 and S2 present. No murmurs, rubs, or gallops. PULMONARY: Chest is clear to auscultation, no wheezing or crackles. ABDOMEN: Soft, nontender, nondistended, normoactive bowel sounds. No palpable organomegaly. MUSCULOSKELETAL: No joint swelling or deformity. EXTREMITIES: No cyanosis, clubbing, or pedal edema. NEUROLOGICAL: Gross neurological examination did not reveal any focal deficits. SKIN: No rashes. - Labs CBC & Chem 7: 11/09/20 05:59 11/10/20 05:13 Labs: Abnormal Lab Results - Last 24 Hours (Table) 11/09/20 11/09/20 11/09/20 Range/Units 11:53 17:14 20:30 D-Dimer (<0.60) mg/L FEU BUN/Creatinine Ratio (12.00-20.00) Ratio Glucose (70-110) mg/dL POC Glucose (mg/dL) 265 H 345 H 356 H (75-99) mg/dL Calcium (8.7-10.3) mg/dL Lactate Dehydrogenase (120-246) U/L C-Reactive Protein (0.0-0.8) mg/dL 11/10/20 11/10/20 11/10/20 Range/Units 05:13 05:13 07:15 D-Dimer 0.92 H (<0.60) mg/L FEU BUN/Creatinine Ratio 35.71 H (12.00-20.00) Ratio Glucose 216 H (70-110) mg/dL POC Glucose (mg/dL) 214 H (75-99) mg/dL Calcium 8.0 L (8.7-10.3) mg/dL Lactate Dehydrogenase 426 H (120-246) U/L C-Reactive Protein 10.0 H (0.0-0.8) mg/dL Microbiology - Last 24 Hours (Table) 11/07/20 15:24 Blood Culture - Preliminary Blood No Growth after 48 hours 11/07/20 15:18 Blood Culture - Preliminary Blood No Growth after 48 hours Assessment and Plan Assessment: -Shortness of breath acute hypoxic respiratory failure: Secondary to covid 19 pneumonia. Patient will continued on Decadron pulmonary evaluated the patient will monitor inflammatory markers which are present elevated patient has elevated d-dimer to rule out pulmonary embolism patient is on Lovenox at this time. And patient is also on Remdesivir. Patient also presently on 15 L oxygen via nonrebreather as he became severely dyspneic throughout the night. Oxygen saturation is 88%. -Type 2 diabetes mellitus: Blood sugars are bit elevated because of Decadron patient will be started on sliding scale, metformin on hold. Will continue to monitor and possibly add long-acting if blood sugars continue to elevate -Hyperlipidemia -Hypertension -Coronary artery disease with bypass surgery in the past -DVT prophylaxis: Lovenox -GI prophylaxis Pepcid Plan: Continue current medications. Continue to monitor blood sugars and treat with sliding scale at this time. Will repeat a.m. labs. Discussed with nursing staff about weaning FiO2 as tolerated. Patient is now requiring 15 L of oxygen via nonrebreather and will continue to monitor vital signs closely. Pulmonary is following. Patient continues on Remdesivir along with Covid 19 cocktail. Further recommendations to follow.
[2020-11-10] MEDS: SODIUM CHLORIDE 0.9% 1,000 ML IV SCH (16:28)
[2020-11-10 17:06] LABS: Glucose,Whole Blood 253 mg/dL (75-99)
[2020-11-10 20:40] LABS: Glucose,Whole Blood 307 mg/dL (75-99)
[2020-11-10] MEDS: MELATONIN 5 MG TABLET PO SCH (21:22)
[2020-11-11 06:45] LABS: Basophils # (A) 0.1 k/uL (0-0.2); Basophils % (A) 1 %; Eosinophils % (A) 0 %; HCT 41.5 % (39.0-53.0); HGB 13.8 gm/dL (13.0-17.5); Lymphocytes # (A) 0.7 k/uL (1.0-4.8); Lymphocytes % (A) 5 %; MCH 29.6 pg (25.0-35.0); MCHC 33.2 g/dL (31.0-37.0); MCV 89.3 fL (80.0-100.0); Mean Platelet Volume 7.4; Monocytes # (A) 0.6 k/uL (0-1.0); Monocytes % (A) 4 %; Neutrophils # (A) 12.9 k/uL (1.3-7.7); Neutrophils % (A) 88 %; Platelet Count 239 k/uL (150-450); RBC 4.64 m/uL (4.30-5.90); RDW 13.2 % (11.5-15.5); WBC 14.7 k/uL (3.8-10.6)
[2020-11-11 07:12] LABS: Glucose,Whole Blood 280 mg/dL (75-99)
[2020-11-11] MEDS: ASCORBIC ACID 500 MG TAB PO SCH (07:39)
[2020-11-11] MEDS: INSULIN ASPART (NovoLOG) 100 UNIT/ML VIAL SQ SCH ×4 (07:39→20:27)
[2020-11-11] MEDS: ZINC SULFATE 220 MG CAP PO SCH (07:39)
[2020-11-11] MEDS: EZETIMIBE 10 MG TAB PO SCH (07:39)
[2020-11-11] MEDS: ENOXAPARIN 40 MG/0.4 ML SYRINGE SQ SCH (07:39)
[2020-11-11] MEDS: dexAMETHasone 2 MG TAB PO SCH (07:39)
[2020-11-11] MEDS: CITALOPRAM HYDROBROMIDE 10 MG TAB PO SCH (07:40)
[2020-11-11] MEDS: FAMOTIDINE 20 MG TAB PO SCH ×2 (07:40→20:27)
[2020-11-11] MEDS: LOSARTAN 50 MG TAB PO SCH (07:40)
[2020-11-11] MEDS: CHOLECALCIFEROL 1,000 UNIT TAB PO SCH (07:40)
[2020-11-11] MEDS: ATORVASTATIN 40 MG TAB PO SCH (07:40)
[2020-11-11] MEDS: ASPIRIN 325 MG TAB PO SCH (07:40)
[2020-11-11] MEDS: TAMSULOSIN 0.4 MG CAP.ER.24H PO SCH (07:40)
[2020-11-11] MEDS: METOPROLOL TARTRATE 50 MG TAB PO SCH ×2 (07:40→20:28)
[2020-11-11] MEDS: SODIUM CHLORIDE 0.9% 1,000 ML IV SCH ×2 (07:41→18:24)
--- NOTE | 2020-11-11 08:17 | XR ---
EXAMINATION TYPE: XR chest 1V DATE OF EXAM: 11/11/2020 COMPARISON: Prior chest x-ray 11/10/2020 HISTORY: Covid 19 pneumonia TECHNIQUE: Single frontal view of the chest is obtained. FINDINGS: Bilateral airspace disease is again noted. Heart size appears accentuated as on prior exam . No evident pneumothorax or pleural effusion. IMPRESSION: Correlate for pneumonia, edema
[2020-11-11 11:22] LABS: Glucose,Whole Blood 196 mg/dL (75-99)
[2020-11-11 11:29] LABS: African American GFR (CKD) 110.8 (60.0-200.0); Anion Gap 7.4 mmol/L (4.00-12.00); BUN/Creat Ratio 37.14 Ratio (12.00-20.00); Calcium 7.8 mg/dL (8.7-10.3); Carbon Dioxide 25.6 mmol/L (21.6-31.8); Non-African American GFR(CKD) 95.6 (60.0-200.0); Potassium 3.5 mmol/L (3.5-5.5)
--- NOTE | 2020-11-11 11:41 | P.PN ---
Subjective Progress Note Date: 11/11/20 70-year-old male patient known history of CAD, bypass, hypertension diabetes mellitus and hyperlipidemia, was currently in the hospital forCOVID 19 related pneumonia. The patient is currently on oxygen and his oxygen requirements of progressively got up. He was on 2 L and later on he was brought up to 4 L and then 5 L and currently is on 100% nonrebreather facemask. This morning, the patient desaturated and he had to be placed on the percent nonrebreather facemask. He is afebrile. No tachypnea. No significant shortness of breath and he feels fine. His chest x-rayshowed progression of the bilateral airspace disease. No evidence of any pneumothorax. No evidence of any mediastinal lymphadenopathy. The patient's d-dimer is at 0.92. C-reactive protein is at 10. LDH at 426. The patient remains on Decadron. The patient remains on Remdesivir in addition to the combination of vitamin C, vitamin D, zinc sulfate and melatonin. No altered mentation. No chest pain. No nausea. No vomiting. No abdominal pain. No other significant events overnight. Clinically, his COVID related pneumonia is worsening the patient's oxidation is also worse and he has moved up to 100% nonrebreather facemask. 11/11/2020 patient seen in follow-up regarding a regular medical floor, he is currently on: Percent nonrebreather with a pulse ox of 92-94%, dynamically the patient is stable, he is afebrile, is short of breath with any exertion, rule out she feels that he has better energy compared to yesterday. X-ray has been reviewed showing bilateral airspace disease, accentuated heart size, no pneum othorax or pleural effusion, no significant cough or phlegm production. Meanwhile, the patient is able to sit up on a recliner. There is no interval worsening in his shortness of breath compared to yesterday. He feels fine. No fever or chills. He is tolerating his diet. Objective - Vital Signs Vital signs: Vital Signs Temp 97.7 F 11/11/20 05:00 Pulse 60 11/11/20 05:00 Resp 20 11/11/20 05:00 BP 149/66 11/11/20 05:00 Pulse Ox 94 L 11/11/20 05:00 Intake & Output 11/10/20 11/11/20 11/11/20 18:59 06:59 18:59 Intake Total 1075 Output Total 900 Balance 1075 -900 Intake: Intake, IV Titration 1075 Amount Remdesivir 100 mg In 250 Sodium Chloride 0.9% 250 ml @ 250 mls/hr IVPB DAILY@1300 [facility] Rx#: [id number] Sodium Chloride 0.9% 1, 825 000 ml @ 75 mls/hr IV . [id number] [facility] Rx#:[id number] Output: Urine 900 Other: Voiding Method Toilet Urinal # Voids 4 - Exam GENERAL EXAM: Alert, very pleasant 70-year-old gentleman, on 100% nonrebreather facemask, nasal cannula, comfortable in no apparent distress. He also has a oxygen by nasal cannula to supplement his oxygenation. HEAD: Normocephalic. EYES: Normal reaction of pupils, equal size. NOSE: Clear with pink turbinates. THROAT: No erythema or exudates. NECK: No masses, no JVD. CHEST: No chest wall deformity. LUNGS: Equal air entry with crackles in the bilateral posterior bases. CVS: S1 and S2 normal with no audible murmur, regular rhythm. ABDOMEN: No hepatosplenomegaly, normal bowel sounds, no guarding or rigidity. SPINE: No scoliosis or deformity SKIN: No rashes CENTRAL NERVOUS SYSTEM: No focal deficits, tone is normal in all 4 extremities. EXTREMITIES: There is no peripheral edema. No clubbing, no cyanosis. Peripheral pulses are intact. - Labs CBC & Chem 7: 11/11/20 06:24 11/11/20 06:24 Labs: Abnormal Lab Results - Last 24 Hours (Table) 11/10/20 11/10/20 11/10/20 Range/Units 12:14 16:55 20:39 WBC (3.8-10.6) k/uL Neutrophils # (1.3-7.7) k/uL Lymphocytes # (1.0-4.8) k/uL Chloride (96-109) mmol/L BUN/Creatinine Ratio (12.00-20.00) Ratio Glucose (70-110) mg/dL POC Glucose (mg/dL) 206 H 253 H 307 H (75-99) mg/dL Calcium (8.7-10.3) mg/dL 11/11/20 11/11/20 11/11/20 Range/Units 06:24 06:24 07:11 WBC 14.7 H (3.8-10.6) k/uL Neutrophils # 12.9 H (1.3-7.7) k/uL Lymphocytes # 0.7 L (1.0-4.8) k/uL Chloride 111 H (96-109) mmol/L BUN/Creatinine Ratio 37.14 H (12.00-20.00) Ratio Glucose 228 H (70-110) mg/dL POC Glucose (mg/dL) 280 H (75-99) mg/dL Calcium 7.8 L (8.7-10.3) mg/dL 11/11/20 Range/Units 11:21 WBC (3.8-10.6) k/uL Neutrophils # (1.3-7.7) k/uL Lymphocytes # (1.0-4.8) k/uL Chloride (96-109) mmol/L BUN/Creatinine Ratio (12.00-20.00) Ratio Glucose (70-110) mg/dL POC Glucose (mg/dL) 196 H (75-99) mg/dL Calcium (8.7-10.3) mg/dL Microbiology - Last 24 Hours (Table) 11/07/20 15:24 Blood Culture - Preliminary Blood No Growth after 72 hours 11/07/20 15:18 Blood Culture - Preliminary Blood No Growth after 72 hours Assessment and Plan Plan: 1 CoVID 19 pneumonia with hypoxic respiratory failure in addition to some nausea and vomiting and diarrhea. The GI symptoms have subsided and the patient currently is more hypoxemic with worsening of the bilateral pulmonary infiltrates and interval progression and currently is on 100% nonrebreather facemask. The patient has remained stable since yesterday. Still requiring 100% nonrebreather facemask in addition to oxygen by nasal cannula. His pulse ox above 90%. No interval worsening over the past 24 hours. Chest x-ray showing bilateral pulmonary infiltrates consistent with colitis/Covid 19 related pneumonia. He is awake and alert. No signs of any respiratory insufficiency with tachypnea or use of accessory muscles of breathing at this point in time. 2 Acute hypoxic respiratory failure secondary to CoVID 19 pneumonitis, currently on 100% nonrebreather facemask. No significant respiratory distress or use of accessory muscles of breathing. He is currently on Decadron. He was initiated on Remdesivir 11/08/2020 3 Febrile illness secondary to above 4 Elevated inflammatory markers secondary to above 5 History of coronary artery disease with previous coronary artery bypass grafting 6 Hyperlipidemia 7 Hypertension 8 Diabetes mellitus 9 CAD and previous history of coronary artery bypass surgery 10 obesity with a BMI of 33.2 11 BPH Plan: Keep the patient on the percent nonrebreather facemask, and repeat a chest x-ray tomorrow. I will see the patient is stable since yesterday. There is no interval worsening his pulmonary status. Nevertheless, he will need close monitoring knowing that his oxygenation and overall pulmonary status is quite borderline. Continue Remdesivir Continue Decadron Lovenox, Pepcid, melatonin, vitamin C, vitamin D, zinc Follow-up inflammatory markers and chest x-ray in a.m. For now, he'll be kept on the medical floor. We will continue to follow and make further recommendations based on his cl inical status
[2020-11-11] MEDS: REMDESIVIR 100 MG in SODIUM CHLORIDE 0.9% 250 ML IVPB SCH (13:01)
--- NOTE | 2020-11-11 16:19 | P.PN ---
Subjective Progress Note Date: 11/11/20 70-year-old male came in with complaints of shortness of breath presently on 2 L of oxygen. Patient was having symptoms since last Tuesday and was diagnosed with Covid 19 last Tuesday. Patient is still having fevers. Patient was having nausea vomiting as well as diarrhea which improved at this time. Patient is comparing of cough and generalized body aches. 11/09/2020 Presently on 4 L of oxygen although feels better. Patient is presently on Remdesivir day 2 11/10/2020 Patient is seen and evaluated in follow-up and had some difficulty breathing and shortness of breath in the middle of the night and is currently on nonrebreather at 15 L and 88%. Patient continues to have dyspnea with any exertion. Pulmonary is following and patient is currently on remdesivir and will also continue with Lovenox, zinc, dexamethasone, and vitamin C supplements. Continue to monitor blood sugars closely as they are elevated most likely due to steroid and will continue with sliding scale at this time. Will repeat a.m. chest x-ray. 11/11/2020 Patient is seen in follow-up and continues to be severely dyspneic with any exertion currently sitting up in the chair and is on 15 L nonrebreather along with nasal cannula. pulmonary is following. Currently receiving Remdesivir and is maintained on Lovenox, vitamin C and D, zinc supplements and will continue at this time. Patient's chest x-ray shows bilateral airspace disease again noted. Blood sugar slightly elevated will continue sliding scale. Chest x-ray in the morning. Instructed the patient to increase activity as tolerated and sit up in the chair more often throughout the day. Constitutional: Denied any fatigue denied any fever. Cardio vascular: denied any chest pain, palpitations Gastrointestinal denied any nausea vomiting Pulmonary: Reports extreme shortness of breath Neurologic denied any new focal deficits All inpatient medications were reviewed and appropriate changes in these medications as dictated in the interval history and assessment and plan. Active Medications Acetaminophen (Acetaminophen Tab 325 Mg Tab) 650 mg PO Q6HR PRN PRN Reason: Mild Pain or Fever > 100.5 Last Admin: 11/08/20 05:51 Dose: 650 mg Documented by: Ascorbic Acid (Ascorbic Acid 500 Mg Tab) 1,000 mg PO DAILY [facility] Last Admin: 11/11/20 07:39 Dose: 1,000 mg Documented by: Aspirin (Aspirin 325 Mg Tab) 325 mg PO DAILY [facility] Last Admin: 11/11/20 07:40 Dose: 325 mg Documented by: Atorvastatin Calcium (Atorvastatin 40 Mg Tab) 40 mg PO DAILY [facility] Last Admin: 11/11/20 07:40 Dose: 40 mg Documented by: Cholecalciferol (Cholecalciferol 1,000 Unit Tab) 1,000 unit PO DAILY [facility] Last Admin: 11/11/20 07:40 Dose: 1,000 unit Documented by: Citalopram Hydrobromide (Citalopram Hydrobromide 10 Mg Tab) 10 mg PO DAILY [facility] Last Admin: 11/11/20 07:40 Dose: 10 mg Documented by: Dexamethasone (Dexamethasone 2 Mg Tab) 6 mg PO DAILY [facility] Last Admin: 11/11/20 07:39 Dose: 6 mg Documented by: Ezetimibe (Ezetimibe 10 Mg Tab) 10 mg PO DAILY [facility] Last Admin: 11/11/20 07:39 Dose: 10 mg Documented by: Enoxaparin Sodium (Enoxaparin 40 Mg/0.4 Ml Syringe) 40 mg SQ DAILY [facility] Last Admin: 11/11/20 07:39 Dose: 40 mg Documented by: Famotidine (Famotidine 20 Mg Tab) 20 mg PO BID [facility] Last Admin: 11/11/20 07:40 Dose: 20 mg Documented by: Hydromorphone HCl (Hydromorphone 0.5 Mg/0.5 Ml Syringe) 0.5 mg IVP Q3HR PRN PRN Reason: Moderate Pain Sodium Chloride (Saline 0.9%) 1,000 mls @ 75 mls/hr IV .[id number] [facility] Last Admin: 11/11/20 07:41 Dose: Not Given Documented by: Remdesivir 100 mg/ Sodium (Chloride) 250 mls @ 250 mls/hr IVPB DAILY@1300 [facility] Stop: 11/12/20 13:59 Last Admin: 11/11/20 13:01 Dose: 250 mls/hr Documented by: Insulin Aspart (Insulin Aspart (Novolog) 100 Unit/Ml Vial) 0 unit SQ ACHS [facility]; Protocol Last Admin: 11/11/20 13:01 Dose: 2 unit Documented by: Lorazepam (Lorazepam 2 Mg/Ml Inj) 0.5 mg IV Q6HR PRN PRN Reason: Anxiety Losartan Potassium (Losartan 50 Mg Tab) 50 mg PO DAILY [facility] Last Admin: 11/11/20 07:40 Dose: 50 mg Documented by: Melatonin (Melatonin 5 Mg Tablet) 5 mg PO HS [facility] Last Admin: 11/10/20 21:22 Dose: 5 mg Documented by: Metoprolol Tartrate (Metoprolol Tartrate 50 Mg Tab) 50 mg PO BID [facility] Last Admin: 11/11/20 07:40 Dose: 50 mg Documented by: Morphine Sulfate (Morphine Sulfate 4 Mg/Ml Syringe) 4 mg IV Q4HR PRN PRN Reason: Severe Pain Naloxone HCl (Naloxone 0.4 Mg/Ml 1 Ml Vial) 0.2 mg IV Q2M PRN PRN Reason: Opioid Reversal Ondansetron HCl (Ondansetron 4 Mg/2 Ml Vial) 4 mg IVP Q8HR PRN PRN Reason: Nausea And Vomiting Tamsulosin HCl (Tamsulosin 0.4 Mg Cap.Er.24h) 0.4 mg PO DAILY [facility] Last Admin: 11/11/20 07:40 Dose: 0.4 mg Documented by: Zinc Sulfate (Zinc Sulfate 220 Mg Cap) 220 mg PO DAILY [facility] Last Admin: 11/11/20 07:39 Dose: 220 mg Documented by: Objective - Vital Signs Vital signs: Vital Signs Temp 98.0 F 11/11/20 11:00 Pulse 62 11/11/20 11:00 Resp 18 11/11/20 11:00 BP 135/72 11/11/20 11:00 Pulse Ox 90 L 11/11/20 15:24 Intake & Output 11/10/20 11/11/20 11/11/20 18:59 06:59 18:59 Intake Total 1075 Output Total 900 Balance 1075 -900 Intake: Intake, IV Titration 1075 Amount Remdesivir 100 mg In 250 Sodium Chloride 0.9% 250 ml @ 250 mls/hr IVPB DAILY@1300 [facility] Rx#: [id number] Sodium Chloride 0.9% 1, 825 000 ml @ 75 mls/hr IV . [id number] [facility] Rx#:[id number] Output: Urine 900 Other: Voiding Method Toilet Urinal # Voids 4 - Exam GENERAL: The patient is alert and oriented x3, not in any acute distress. Well developed, well nourished. Temp is 98F, pulse is 62, respirations are 18, blood pressures 135/72, oxygen saturation is 90% on 15 L high flow along with nonrebreather HEENT: Pupils are round and equally reacting to light. EOMI. No scleral icterus. No conjunctival pallor. Normocephalic, atraumatic. No pharyngeal erythema. No thyromegaly. CARDIOVASCULAR: S1 and S2 present. No murmurs, rubs, or gallops. PULMONARY: Diminished breath sounds bilaterally with a few scattered rhonchi noted ABDOMEN: Soft, nontender, nondistended, normoactive bowel sounds. No palpable organomegaly. MUSCULOSKELETAL: No joint swelling or deformity. EXTREMITIES: No cyanosis, clubbing, or pedal edema. NEUROLOGICAL: Gross neurological examination did not reveal any focal deficits. SKIN: No rashes. - Labs CBC & Chem 7: 11/11/20 06:24 11/11/20 06:24 Labs: Abnormal Lab Results - Last 24 Hours (Table) 11/10/20 11/10/20 11/11/20 Range/Units 16:55 20:39 06:24 WBC 14.7 H (3.8-10.6) k/uL Neutrophils # 12.9 H (1.3-7.7) k/uL Lymphocytes # 0.7 L (1.0-4.8) k/uL Chloride (96-109) mmol/L BUN/Creatinine Ratio (12.00-20.00) Ratio Glucose (70-110) mg/dL POC Glucose (mg/dL) 253 H 307 H (75-99) mg/dL Calcium (8.7-10.3) mg/dL 11/11/20 11/11/20 11/11/20 Range/Units 06:24 07:11 11:21 WBC (3.8-10.6) k/uL Neutrophils # (1.3-7.7) k/uL Lymphocytes # (1.0-4.8) k/uL Chloride 111 H (96-109) mmol/L BUN/Creatinine Ratio 37.14 H (12.00-20.00) Ratio Glucose 228 H (70-110) mg/dL POC Glucose (mg/dL) 280 H 196 H (75-99) mg/dL Calcium 7.8 L (8.7-10.3) mg/dL Microbiology - Last 24 Hours (Table) 11/07/20 15:24 Blood Culture - Preliminary Blood No Growth after 72 hours 11/07/20 15:18 Blood Culture - Preliminary Blood No Growth after 72 hours Assessment and Plan Assessment: -Shortness of breath acute hypoxic respiratory failure: Secondary to covid 19 pneumonia. -Type 2 diabetes mellitus: With hyperglycemia -Hyperlipidemia -Hypertension -Coronary artery disease with bypass surgery in the past -DVT prophylaxis: Lovenox -GI prophylaxis Pepcid Plan: Continue current medications, management, and symptomatic treatment Continue to monitor blood sugars and treat with sliding scale at this time. Blood sugars continue to be elevated and will add long-acting and monitor closely. Will repeat a.m. labs. Discussed with nursing staff about weaning FiO2 as tolerated. Patient is now requiring 15 L of oxygen via nonrebreather along with nasal cannula and will continue to monitor vital signs closely. Pulmonary is following. Patient continues on Remdesivir along with Covid 19 cocktail. Prognosis is guarded Further recommendations to follow.
[2020-11-11 16:31] LABS: Glucose,Whole Blood 309 mg/dL (75-99)
[2020-11-11 17:58] LABS: Glucose,Whole Blood 234 mg/dL (75-99)
[2020-11-11] MEDS ORDERED: DEXAMETHASONE SOD PHOSPHATE 10 MG/ML 1 ML VIAL IV STA (18:11)
[2020-11-11 19:15] LABS: Appearance,Urine Clear (Clear); Bilirubin,Urine Negative (Negative); Blood,Urine Negative (Negative); Color,Urine Yellow; Glucose,Urine (UA) 4+ (Negative); Ketones,Urine Negative (Negative); Leukocyte Esterase,Urine Negative (Negative); Mucus,Urine Rare /hpf; Nitrite,Urine Negative (Negative); Protein,Urine 1+ (Negative); RBC,Urine 11 /hpf (0-5); Squamous Epithelial Cell,Urine <1 /hpf (0-4); WBC,Urine 1 /hpf (0-5)
[2020-11-11 20:09] LABS: Glucose,Whole Blood 207 mg/dL (75-99)
[2020-11-11] MEDS: MELATONIN 5 MG TABLET PO SCH (20:27)
[2020-11-12 04:36] LABS: Basophils # (A) 0.1 k/uL (0-0.2); Basophils % (A) 1 %; Eosinophils % (A) 0 %; HCT 42.3 % (39.0-53.0); HGB 14.2 gm/dL (13.0-17.5); Lymphocytes # (A) 0.4 k/uL (1.0-4.8); Lymphocytes % (A) 3 %; MCH 30.1 pg (25.0-35.0); MCHC 33.7 g/dL (31.0-37.0); MCV 89.6 fL (80.0-100.0); Mean Platelet Volume 7.5; Monocytes # (A) 0.7 k/uL (0-1.0); Monocytes % (A) 6 %; Neutrophils # (A) 10.6 k/uL (1.3-7.7); Neutrophils % (A) 89 %; Platelet Count 249 k/uL (150-450); RBC 4.72 m/uL (4.30-5.90); RDW 13.3 % (11.5-15.5); WBC 11.9 k/uL (3.8-10.6)
[2020-11-12 04:55] LABS: African American GFR (CKD) >90 (>60 ml/min/1.73 sqM); Anion Gap 4 mmol/L; Blood Urea Nitrogen 26 mg/dL (9-20); C Reactive Protein 84.3 mg/L (<10.0); Calcium 8.1 mg/dL (8.4-10.2); Carbon Dioxide 28 mmol/L (22-30); Chloride 109 mmol/L (98-107); Glucose 235 mg/dL (74-99); LDH 1969 U/L (313-618); Magnesium 2.1 mg/dL (1.6-2.3); Non-African American GFR(CKD) >90 (>60 ml/min/1.73 sqM); Phosphorus 4.6 mg/dL (2.5-4.5); Potassium 4.1 mmol/L (3.5-5.1); Sodium 141 mmol/L (137-145)
[2020-11-12] MEDS: SODIUM CHLORIDE 0.9% 1,000 ML IV SCH ×2 (05:27→18:20)
[2020-11-12 05:57] LABS: ABG HCO3 25 mmol/L (21-25); ABG Oxygen Saturation 84.6 % (94-97); ABG PCO2 35 mmHg (35-45); ABG PH 7.46 (7.35-7.45); ABG TCO2 26 mmol/L (19-24); Allen Test Performed? Yes
[2020-11-12 07:09] LABS: Glucose,Whole Blood 250 mg/dL (75-99)
[2020-11-12] MEDS: INSULIN ASPART (NovoLOG) 100 UNIT/ML VIAL SQ SCH ×4 (07:12→20:35)
--- NOTE | 2020-11-12 07:37 | XR ---
EXAMINATION TYPE: XR chest 1V portable DATE OF EXAM: 11/12/2020 COMPARISON: Chest x-ray 11/11/2020 HISTORY: Covid pneumonia TECHNIQUE: Single frontal view of the chest is obtained. FINDINGS: Bilateral airspace disease persists. No evident pneumothorax or pleural effusion. Heart si ze is stable and is likely upper limit of normal. Aorta is dense. There are surgical ye present towards the left proximal mainstem bronchus region better seen on today's exam. IMPRESSION: There may be some improvement in aeration compared to prior exam although there are diff erences in technique
[2020-11-12] MEDS ORDERED: DEXAMETHASONE SOD PHOSPHATE 10 MG/ML 1 ML VIAL IV SCH (09:00)
[2020-11-12] MEDS: FAMOTIDINE 20 MG/2 ML VIAL IV SCH ×2 (09:52→20:36)
[2020-11-12] MEDS: ATORVASTATIN 40 MG TAB PO SCH (09:53)
[2020-11-12] MEDS: ZINC SULFATE 220 MG CAP PO SCH (09:53)
[2020-11-12] MEDS: METOPROLOL TARTRATE 50 MG TAB PO SCH ×2 (09:53→23:08)
[2020-11-12] MEDS: ENOXAPARIN 40 MG/0.4 ML SYRINGE SQ SCH (09:53)
[2020-11-12] MEDS: CITALOPRAM HYDROBROMIDE 10 MG TAB PO SCH (09:53)
[2020-11-12] MEDS: INSULIN DETEMIR (LEVEMIR) 100 UNIT/ML SYR SQ SCH (09:54)
[2020-11-12 10:37] VITALS: BMI 37.2
--- NOTE | 2020-11-12 10:52 | PN ---
PROGRESS NOTE PULMONARY/CRITICAL CARE PROGRESS NOTE: DATE OF SERVICE: November 12, 2020 Critical care time greater than 30 minutes. This is a 70-year-old gentleman who was admitted back on . He came in with COVID positivity and had some pulmonary issues, but most of his issues actually initially were GI in nature. He had nausea, vomiting, abdominal pain, etc. More recently, he has developed worsening COVID-19 pneumonitis with profound hypoxemia. He was moved to the ICU yesterday, 11/11. Currently, he is on BiPAP with settings of 12/8 and 100%. Blood gases showed a pO2 of only 48, pCO2 of 35 and a pH of 7.46. I increased the IPAP from 12 to 16. Saturations are hanging right around in the low 90s and high 80s. I did talk to the patient about code status. He does not want to be on the ventilator. Initially, he said that he did not want to be on the ventilator, but apparently family members convinced him to be on the ventilator. Now, he has changed his mind again and states that he would not want to be on life support, which as I think is appropriate given the severity of his disease and his age. Currently, he has had convalescent plasma twice. He is day 4 of Remdesivir. He is getting saline at 75 mL an hour. Again, the IPAP was increased from 12-16. He is quite short of breath. He is very restless and agitated. He is moving side-to- side. I told him to try to lie on his stomach if possible. That may improve his oxygenation. PHYSICAL EXAMINATION: VITAL SIGNS: Current vital signs are reviewed. Temperature is 98.4, heart rate 67, respiratory rate in the high 30s, low 40s, blood pressure 137/79, mean 98, saturations since I made the change on the BiPAP is now between 89% to 91%. GENERAL: Appears quite tachypneic and dyspneic. Some conversational dyspnea. No audible wheezing. HEENT: Examination is grossly unremarkable. BiPAP mask in place. NECK: Supple. Full range of motion. No adenopathy. Neck veins are flat. CARDIOVASCULAR: Examination reveals regular rhythm and rate. Heart rate 67. S1, S2 normal. No S3, S4, or murmur. LUNGS: Reveal coarse bilateral rhonchi. There are some expiratory wheezes. There are some bibasilar crackles. Breath sounds diminished. ABDOMEN: Soft. Bowel sounds are heard. EXTREMITIES: Are intact. Minimal edema. SKIN: Without rash. NEUROLOGIC: Examination is difficult to assess. He is awake and alert. He is appropriate. He does move all 4 extremities. He does seem to be a bit agitated. CURRENT LABS: Current labs are reviewed. White count 11.9, hemoglobin 14.2, hematocrit 42.3, platelet count 249,000. D-dimer 2.04. Blood gases have been noted. Sodium 141, potassium 4.1, chloride 109, CO2 of 28. Anion gap is 4. BUN and creatinine were 26 and 0.68. Calcium 8.1, phosphorus 4.6. LDH 1969 and C-reactive protein 84.3. Urine is negative. Microbiology is currently negative. Chest x-ray is reviewed. His chest x-ray shows bilateral infiltrates, sparing the apices of the lungs and involving the mid and lower lung rebolledo significantly. His chest x-ray has definitely progress since his admission chest x-ray on 11/07. CURRENT MEDICATIONS: Current medications are reviewed. The patient is on Tylenol, vitamin C, aspirin, Lipitor, vitamin D3, Celexa, Decadron, Lovenox, Zetia, famotidine, Dilaudid, insulin, Ativan, losartan, melatonin, metoprolol, morphine, Narcan, Zofran, remdesivir, saline IV, Flomax, and zinc. ASSESSMENT: 1. Acute hypoxemic respiratory failure secondary to COVID-19 pneumonia/pneumonitis, with progression of disease, since initially his symptoms were primarily gastrointestinal in nature. 2. Febrile illness, secondary to #1. 3. Elevated inflammatory markers secondary to COVID-19 pneumonia. 4. Coronary artery disease with previous bypass grafting. 5. Hyperlipidemia by history. 6. Essential hypertension. 7. Diabetes mellitus. 8. Obesity. 9. Benign prostatic hypertrophy. PLAN: The BiPAP settings were changed a bit. IPAP was increased from 12 to 16. EPAP will stay at 8. He is on 100%. I do recommend the patient try proning himself. He is on day 4 remdesivir. He is getting saline at 75 mL an hour. The blood gases have been noted. The patient apparently now has changed his mind and has decided not to go on life support. I do not think that is unreasonable given his age, multiple medical problems and severity of his disease. He initially was a DNR. Apparently his family members convinced him to go on to the life support, but after talking to him today, it is clear that he would not want to be on the mechanical ventilator. We documented that in the medical record. All the other medications will continue. We will continue to follow. Prognosis is guarded. No additional recommendations are made. Critical care time greater than 30 minutes. HAM / JC: [id number] /
[2020-11-12 11:28] LABS: Glucose,Whole Blood 289 mg/dL (75-99)
[2020-11-12] MEDS: ACETAMINOPHEN TAB 325 MG TAB PO PRN (11:29)
[2020-11-12] MEDS: ASPIRIN 325 MG TAB PO SCH (11:29)
[2020-11-12] MEDS: EZETIMIBE 10 MG TAB PO SCH (11:29)
[2020-11-12 11:30] LABS: Glucose,Whole Blood 196 mg/dL (75-99)
[2020-11-12] MEDS: ASCORBIC ACID 500 MG TAB PO SCH (12:27)
[2020-11-12] MEDS: CHOLECALCIFEROL 1,000 UNIT TAB PO SCH (12:27)
[2020-11-12] MEDS: TAMSULOSIN 0.4 MG CAP.ER.24H PO SCH (14:11)
[2020-11-12] MEDS: REMDESIVIR 100 MG in SODIUM CHLORIDE 0.9% 250 ML IVPB SCH (14:11)
[2020-11-12] MEDS: LOSARTAN 50 MG TAB PO SCH (14:11)
--- NOTE | 2020-11-12 15:49 | P.PN ---
Subjective Progress Note Date: 11/12/20 70-year-old male came in with complaints of shortness of breath presently on 2 L of oxygen. Patient was having symptoms since last Tuesday and was diagnosed with Covid 19 last Tuesday. Patient is still having fevers. Patient was having nausea vomiting as well as diarrhea which improved at this time. Patient is comparing of cough and generalized body aches. 11/09/2020 Presently on 4 L of oxygen although feels better. Patient is presently on Remdesivir day 2 11/10/2020 Patient is seen and evaluated in follow-up and had some difficulty breathing and shortness of breath in the middle of the night and is currently on nonrebreather at 15 L and 88%. Patient continues to have dyspnea with any exertion. Pulmonary is following and patient is currently on remdesivir and will also continue with Lovenox, zinc, dexamethasone, and vitamin C supplements. Continue to monitor blood sugars closely as they are elevated most likely due to steroid and will continue with sliding scale at this time. Will repeat a.m. chest x-ray. 11/11/2020 Patient is seen in follow-up and continues to be severely dyspneic with any exertion currently sitting up in the chair and is on 15 L nonrebreather along with nasal cannula. pulmonary is following. Currently receiving Remdesivir and is maintained on Lovenox, vitamin C and D, zinc supplements and will continue at this time. Patient's chest x-ray shows bilateral airspace disease again noted. Blood sugar slightly elevated will continue sliding scale. Chest x-ray in the morning. Instructed the patient to increase activity as tolerated and sit up in the chair more often throughout the day. 11/12/2020 Patient is seen and evaluated and follow-up and was recently moved to the ICU for close monitoring as respiratory status deteriorated and is on 100% BiPAP. Pulmonary following closely. Patient is also receiving remdesivir and has also received 2 units of convalescent plasma. Patient continues to be extremely restless and anxious and severely dyspneic even while on the BiPAP. Patient has also made the wish and request a being a full code without mechanical ventilation after discussing with his family. He does not want to be on life support. D-dimer has gone up to 2.04. Patient is maintained on Lovenox. Chest x-ray from this morning shows bilateral airspace disease with some possible improvement in aeration. Blood sugars continue to be elevated and will continue with long-acting along with sliding scale and monitor closely. Lactate dehydrogenase is substantially elevated at 1969 from 426 yesterday along with CRP which is 84.3 as compared to 10 yesterday. Will continue to monitor closely as patient's prognosis is extremely guarded. Constitutional: Reports fatigue, patient is restless and anxious Cardio vascular: denied any chest pain, palpitations Gastrointestinal denied any nausea vomiting Pulmonary: Reports extreme shortness of breath Neurologic denied any new focal deficits All inpatient medications were reviewed and appropriate changes in these medications as dictated in the interval history and assessment and plan. Active Medications Acetaminophen (Acetaminophen Tab 325 Mg Tab) 650 mg PO Q6HR PRN PRN Reason: Mild Pain or Fever > 100.5 Last Admin: 11/12/20 11:29 Dose: 650 mg Documented by: Ascorbic Acid (Ascorbic Acid 500 Mg Tab) 1,000 mg PO DAILY [facility] Last Admin: 11/12/20 12:27 Dose: 1,000 mg Documented by: Aspirin (Aspirin 325 Mg Tab) 325 mg PO DAILY [facility] Last Admin: 11/12/20 11:29 Dose: 325 mg Documented by: Atorvastatin Calcium (Atorvastatin 40 Mg Tab) 40 mg PO DAILY [facility] Last Admin: 11/12/20 09:53 Dose: 40 mg Documented by: Cholecalciferol (Cholecalciferol 1,000 Unit Tab) 1,000 unit PO DAILY [facility] Last Admin: 11/12/20 12:27 Dose: 1,000 unit Documented by: Citalopram Hydrobromide (Citalopram Hydrobromide 10 Mg Tab) 10 mg PO DAILY [facility] Last Admin: 11/12/20 09:53 Dose: 10 mg Documented by: Dexamethasone Sodium Phosphate (Dexamethasone Sod Phosphate 10 Mg/Ml 1 Ml Vial) 6 mg IV DAILY [facility] Last Admin: 11/12/20 09:52 Dose: 6 mg Documented by: Ezetimibe (Ezetimibe 10 Mg Tab) 10 mg PO DAILY [facility] Last Admin: 11/12/20 11:29 Dose: 10 mg Documented by: Enoxaparin Sodium (Enoxaparin 40 Mg/0.4 Ml Syringe) 40 mg SQ DAILY [facility] Last Admin: 11/12/20 09:53 Dose: 40 mg Documented by: Famotidine (Famotidine 20 Mg/2 Ml Vial) 20 mg IV Q12HR [facility] Last Admin: 11/12/20 09:52 Dose: 20 mg Documented by: Hydromorphone HCl (Hydromorphone 0.5 Mg/0.5 Ml Syringe) 0.5 mg IVP Q3HR PRN PRN Reason: Moderate Pain Sodium Chloride (Saline 0.9%) 1,000 mls @ 75 mls/hr IV .[id number] [facility] Last Admin: 11/12/20 05:27 Dose: 75 mls/hr Documented by: Insulin Aspart (Insulin Aspart (Novolog) 100 Unit/Ml Vial) 0 unit SQ ACHS [facility]; Protocol Last Admin: 11/12/20 11:31 Dose: 2 unit Documented by: Insulin Detemir (Insulin Detemir (Levemir) 100 Unit/Ml Syr) 10 unit SQ DAILY@0700 [facility] Last Admin: 11/12/20 09:54 Dose: 10 unit Documented by: Lorazepam (Lorazepam 2 Mg/Ml Inj) 0.5 mg IV Q6HR PRN PRN Reason: Anxiety Losartan Potassium (Losartan 50 Mg Tab) 50 mg PO DAILY [facility] Last Admin: 11/12/20 14:11 Dose: 50 mg Documented by: Melatonin (Melatonin 5 Mg Tablet) 5 mg PO HS [facility] Last Admin: 11/11/20 20:27 Dose: 5 mg Documented by: Metoprolol Tartrate (Metoprolol Tartrate 50 Mg Tab) 50 mg PO BID [facility] Last Admin: 11/12/20 09:53 Dose: 50 mg Documented by: Morphine Sulfate (Morphine Sulfate 4 Mg/Ml Syringe) 4 mg IV Q4HR PRN PRN Reason: Severe Pain Naloxone HCl (Naloxone 0.4 Mg/Ml 1 Ml Vial) 0.2 mg IV Q2M PRN PRN Reason: Opioid Reversal Ondansetron HCl (Ondansetron 4 Mg/2 Ml Vial) 4 mg IVP Q8HR PRN PRN Reason: Nausea And Vomiting Tamsulosin HCl (Tamsulosin 0.4 Mg Cap.Er.24h) 0.4 mg PO DAILY [facility] Last Admin: 11/12/20 14:11 Dose: 0.4 mg Documented by: Zinc Sulfate (Zinc Sulfate 220 Mg Cap) 220 mg PO DAILY [facility] Last Admin: 11/12/20 09:53 Dose: 220 mg Documented by: Objective - Vital Signs Vital signs: Vital Signs Temp 98.8 F 11/12/20 13:33 Pulse 65 11/12/20 14:00 Resp 34 H 11/12/20 14:00 BP 157/75 11/12/20 14:00 Pulse Ox 87 L 11/12/20 14:00 Intake & Output 11/11/20 11/12/20 11/12/20 18:59 06:59 18:59 Intake Total 75 900 870 Output Total 965 400 Balance 75 -65 470 Weight 114.3 kg 114.3 kg Intake: IV 75 900 450 Sodium Chloride 0.9% 1, 75 900 450 000 ml @ 75 mls/hr IV . [id number] [facility] Rx#:[id number] Blood Product 420 Ffp Pher Conval Covid19 202 Acda 1 Unit [id number] Ffp Pher Conval Covid19 218 Acda 2 Unit [id number] Output: Urine 965 400 Other: Voiding Method Indwelling Catheter Indwelling Catheter Indwelling Catheter - Exam GENERAL: The patient is alert and oriented x3, anxious, restless. Well developed, well nourished. Currently on a BiPAP. Temp is 98.8F, pulse is 58, respirations are 30, blood pressures 159/81, oxygen saturation is 88-91 % on Bi PAP at 100% HEENT: Pupils are round and equally reacting to light. EOMI. No scleral icterus. No conjunctival pallor. Normocephalic, atraumatic. No pharyngeal erythema. No thyromegaly. CARDIOVASCULAR: S1 and S2 muffled PULMONARY: Diminished breath sounds bilaterally with a few scattered rhonchi not ed ABDOMEN: Soft, nontender, nondistended, normoactive bowel sounds. No palpable organomegaly. MUSCULOSKELETAL: No joint swelling or deformity. EXTREMITIES: No cyanosis, clubbing, or pedal edema. NEUROLOGICAL: Gross neurological examination did not reveal any focal deficits. SKIN: No rashes. - Labs CBC & Chem 7: 11/12/20 03:45 11/12/20 03:45 Labs: Abnormal Lab Results - Last 24 Hours (Table) 11/11/20 11/11/20 11/11/20 Range/Units 16:29 17:56 18:45 WBC (3.8-10.6) k/uL Neutrophils # (1.3-7.7) k/uL Lymphocytes # (1.0-4.8) k/uL D-Dimer (<0.60) mg/L FEU ABG pH (7.35-7.45) ABG pO2 (83-108) mmHg ABG Total CO2 (19-24) mmol/L ABG O2 Saturation (94-97) % Chloride (98-107) mmol/L BUN (9-20) mg/dL Glucose (74-99) mg/dL POC Glucose (mg/dL) 309 H 234 H (75-99) mg/dL Calcium (8.4-10.2) mg/dL Phosphorus (2.5-4.5) mg/dL Lactate Dehydrogenase (313-618) U/L C-Reactive Protein (<10.0) mg/L Urine Protein 1+ H (Negative) Urine Glucose (UA) 4+ H (Negative) Urine RBC 11 H (0-5) /hpf Urine Mucus Rare H (None) /hpf 11/11/20 11/12/20 11/12/20 Range/Units 20:08 03:45 03:45 WBC 11.9 H (3.8-10.6) k/uL Neutrophils # 10.6 H (1.3-7.7) k/uL Lymphocytes # 0.4 L (1.0-4.8) k/uL D-Dimer (<0.60) mg/L FEU ABG pH (7.35-7.45) ABG pO2 (83-108) mmHg ABG Total CO2 (19-24) mmol/L ABG O2 Saturation (94-97) % Chloride 109 H (98-107) mmol/L BUN 26 H (9-20) mg/dL Glucose 235 H (74-99) mg/dL POC Glucose (mg/dL) 207 H (75-99) mg/dL Calcium 8.1 L (8.4-10.2) mg/dL Phosphorus 4.6 H (2.5-4.5) mg/dL Lactate Dehydrogenase 1969 H (313-618) U/L C-Reactive Protein 84.3 H (<10.0) mg/L Urine Protein (Negative) Urine Glucose (UA) (Negative) Urine RBC (0-5) /hpf Urine Mucus (None) /hpf 11/12/20 11/12/20 11/12/20 Range/Units 03:45 05:52 07:07 WBC (3.8-10.6) k/uL Neutrophils # (1.3-7.7) k/uL Lymphocytes # (1.0-4.8) k/uL D-Dimer 2.04 H (<0.60) mg/L FEU ABG pH 7.46 H (7.35-7.45) ABG pO2 48 L* (83-108) mmHg ABG Total CO2 26 H (19-24) mmol/L ABG O2 Saturation 84.6 L (94-97) % Chloride (98-107) mmol/L BUN (9-20) mg/dL Glucose (74-99) mg/dL POC Glucose (mg/dL) 250 H (75-99) mg/dL Calcium (8.4-10.2) mg/dL Phosphorus (2.5-4.5) mg/dL Lactate Dehydrogenase (313-618) U/L C-Reactive Protein (<10.0) mg/L Urine Protein (Negative) Urine Glucose (UA) (Negative) Urine RBC (0-5) /hpf Urine Mucus (None) /hpf 11/12/20 11/12/20 Range/Units 11:27 11:29 WBC (3.8-10.6) k/uL Neutrophils # (1.3-7.7) k/uL Lymphocytes # (1.0-4.8) k/uL D-Dimer (<0.60) mg/L FEU ABG pH (7.35-7.45) ABG pO2 (83-108) mmHg ABG Total CO2 (19-24) mmol/L ABG O2 Saturation (94-97) % Chloride (98-107) mmol/L BUN (9-20) mg/dL Glucose (74-99) mg/dL POC Glucose (mg/dL) 289 H 196 H (75-99) mg/dL Calcium (8.4-10.2) mg/dL Phosphorus (2.5-4.5) mg/dL Lactate Dehydrogenase (313-618) U/L C-Reactive Protein (<10.0) mg/L Urine Protein (Negative) Urine Glucose (UA) (Negative) Urine RBC (0-5) /hpf Urine Mucus (None) /hpf Microbiology - Last 24 Hours (Table) 11/07/20 15:24 Blood Culture - Preliminary Blood No Growth after 96 hours 11/07/20 15:18 Blood Culture - Preliminary Blood No Growth after 96 hours Assessment and Plan Assessment: -Shortness of breath acute hypoxic respiratory failure: Secondary to covid 19 pneumonia. -Type 2 diabetes mellitus: With hyperglycemia -Hyperlipidemia -Hypertension -Coronary artery disease with bypass surgery in the past -DVT prophylaxis: Lovenox -GI prophylaxis Pepcid Plan: Continue current medications, management, and symptomatic treatment Continue to monitor blood sugars and treat with sliding scale along with long-acting at this time. Patient was transferred to the ICU for close monitoring as respiratory status deteriorated and patient is currently maintained on BiPAP at 100%. Patient continues to be extremely dyspneic with any exertion and is very restless and anxious. Patient requested to be full code without mechanical ventilation after discussing with family. Inflammatory markers elevated. Patient is currently receiving Remdesivir and has also received 2 units of convalescent plasma. Will repeat a.m. labs. Pulmonary is following and infectious disease has been consulted. D-dimer is elevated today and patient is maintained on Lovenox. Due to multiple complex medical issues, prognosis is guarded. Further recommendations to follow.
[2020-11-12 17:23] LABS: Glucose,Whole Blood 226 mg/dL (75-99)
[2020-11-12 17:23] LABS: Glucose,Whole Blood 241 mg/dL (75-99)
[2020-11-12 20:15] LABS: Glucose,Whole Blood 194 mg/dL (75-99)
[2020-11-12] MEDS: MELATONIN 5 MG TABLET PO SCH (20:36)
[2020-11-12] MEDS ORDERED: ENOXAPARIN 40 MG/0.4 ML SYRINGE SQ SCH (21:00)
[2020-11-12] MEDS: methylPREDNISolone SOD SUCCI 125 MG/2 ML VIAL IV SCH (23:31)
--- NOTE | 2020-11-13 00:37 | CONS ---
CONSULTATION DATE OF SERVICE: 11/12/2020 REASON FOR CONSULTATION: COVID-19 infection. HISTORY OF PRESENT ILLNESS: The patient is a 70-year-old male who presented to [facility] ER about 5 days ago on November 07, 2020 for evaluation of increasing nausea, vomiting, diarrhea and shortness of breath. Apparently, the patient was transferred five days prior to presentation to the hospital for similar symptoms and has been diagnosed with Covid 19. The patient did have a minimal shortness of breath and cough on presentation to the hospital. The patient did have a fever of 101.7 on presentation. Subsequently his fever has resolved. Patient also hypoxic on presentation to the hospital with 29% on room air. The patient was admitted to the hospital regular floor and has been treated with Remdesivir, which the patient completed his 5-day course today. The patient also on oral Decadron which has been switched to p.o. today and is on Lovenox. However, the patient did have persistent worsening of his respiratory status and currently on BiPAP still sating about 86-91 percent , specifically the patient. The patient slightly discouraged, mentioned he is not getting any better and has been complaining of more shortness of breath. The patient denies having any chest pain though. He did have occasional cough, not bringing any sputum. No nausea. No further vomiting. No abdominal pain and no diarrhea. No urinary symptoms. The patient did have a mildly elevated white count of 11.9, down from yesterday. The patient also noticed to have significantly elevated LDH of with a CRP of 84.3, which is trending up. His kidney function is normal though. The patient on admission did have a CT angiogram that was negative for PE however it did show patchy ground-glass opacities suspicions for Covid 19. Chest x-ray did show some improvement in aeration compared to prior exam. REVIEW OF SYSTEMS: Positive points have been mentioned in HPI. Rest of the systems are negative. PAST MEDICAL HISTORY: His past medical history of diabetes mellitus, hypertension, hyperlipidemia, [place]. PAST SURGICAL HISTORY: Past surgical history: Coronary artery bypass grafting. SOCIAL HISTORY: No smoking. No drinking or drug use. FAMILY HISTORY: No pertinent findings noticed. ALLERGIES: No known drug allergies. MEDICATIONS: Include the patient is currently on dexamethasone 6 mg IV daily. He is on Tylenol, vitamin C, aspirin, Lipitor, vitamin D3, Celexa, Lovenox, Zetia, Pepcid, Dilaudid, NovoLog, Levemir, Ativan, Cozaar, Melatonin, Lopressor, morphine sulfate, Narcan, Zofran and IV fluid, Flomax and zinc sulfate. PHYSICAL EXAMINATION: Blood pressure is 136/66, pulse of 73, temperature is 98. He is 91% on BiPAP. General description is an elderly male lying in bed in mild respiratory distress. No tachypnea. No accessory muscles of respiration use. HEENT: Shows slight pallor. No scleral icterus. Oral cavity could not be examined because the BiPAP. Neck: Trachea central. No thyromegaly. Lungs unlabored breathing, decreased intensity in the breath sounds with no wheeze or crackles. Heart S1, S2. Regular rate and rhythm. ABDOMEN: Soft. No tenderness. No guarding. No rigidity. Extremities: No edema of the feet. Skin examination: No rash or mass palpable. Neurological: Patient is awake, alert and oriented times three. Mood and affect normal. LABS: Hemoglobin 14.1, white count 11.9. Patient D-dimer is trending up with 2.04. LDH is significantly elevated . DIAGNOSTIC IMPRESSION/PLAN: Patient with acute respiratory failure which is multifactorial in this patient who did have acute COVID-19 pneumonia now noticed to have a significant worsening and possibly going into cytochrome [place] with significant elevated LDH and inflammatory markers. Patient will need more aggressive anti-inflammatory medication and would have benefit from Actemra. However, this is not on formulary on protocol here. At least should adjust up his steroid to Solu-Medrol 60 q.6 as the patient has received adequate antiviral therapy with Remdesivir and convalescent plasma. PLAN: 1. We will switch over his steroid dose to Solu-Medrol 60 mg q.6 hours. 2. Adjust the dose of the Lovenox to 40 q.12 with the D-dimer is trending up. 3. Continue with vitamin C and zinc. 4. Droplet isolation and respiratory support. 5. We will follow on his clinical condition to further adjust medication if needed. Overall prognosis remains to be guarded though. Thank you for this consultation. Will follow the patient along with you. MMODL / IJN: [id number] /
[2020-11-13] MEDS: methylPREDNISolone SOD SUCCI 125 MG/2 ML VIAL IV SCH ×3 (05:14→17:24)
[2020-11-13 05:32] LABS: Basophils # (A) 0.1 k/uL (0-0.2); Basophils % (A) 0 %; Eosinophils # (A) 0.1 k/uL (0-0.7); Eosinophils % (A) 1 %; HCT 41.1 % (39.0-53.0); HGB 14.2 gm/dL (13.0-17.5); Lymphocytes # (A) 0.3 k/uL (1.0-4.8); Lymphocytes % (A) 2 %; MCH 30.1 pg (25.0-35.0); MCHC 34.6 g/dL (31.0-37.0); MCV 87.1 fL (80.0-100.0); Mean Platelet Volume 7.4; Monocytes # (A) 0.4 k/uL (0-1.0); Monocytes % (A) 3 %; Neutrophils # (A) 11.1 k/uL (1.3-7.7); Neutrophils % (A) 92 %; Platelet Count 229 k/uL (150-450); RBC 4.73 m/uL (4.30-5.90); RDW 13.2 % (11.5-15.5)
[2020-11-13 05:50] LABS: African American GFR (CKD) >90 (>60 ml/min/1.73 sqM); Anion Gap 4 mmol/L; Blood Urea Nitrogen 25 mg/dL (9-20); Calcium 7.9 mg/dL (8.4-10.2); Carbon Dioxide 27 mmol/L (22-30); Chloride 109 mmol/L (98-107); Glucose 191 mg/dL (74-99); LDH 1791 U/L (313-618); Non-African American GFR(CKD) >90 (>60 ml/min/1.73 sqM); Potassium 3.7 mmol/L (3.5-5.1); Sodium 140 mmol/L (137-145)
[2020-11-13 06:02] LABS: C Reactive Protein 186.4 mg/L (<10.0)
[2020-11-13 07:02] LABS: Glucose,Whole Blood 192 mg/dL (75-99)
[2020-11-13] MEDS ORDERED: Potassium Replacement Protocol 1 EACH MISC MISCELLANE PRN (07:04)
[2020-11-13] MEDS: POTASSIUM CHLORIDE 10 MEQ in WATER FOR INJECTION 1 100ML.BAG IVPB SCH ×2 (07:10→09:34)
[2020-11-13] MEDS: INSULIN ASPART (NovoLOG) 100 UNIT/ML VIAL SQ SCH ×3 (07:11→17:25)
[2020-11-13] MEDS: SODIUM CHLORIDE 0.9% 1,000 ML IV SCH ×2 (07:11→21:13)
[2020-11-13 08:20] LABS: ABG PO2 48 mmHg (83-108)
--- NOTE | 2020-11-13 08:33 | XR ---
EXAMINATION TYPE: XR chest 1V portable DATE OF EXAM: 11/13/2020 COMPARISON: Prior chest x-ray 11/12/2020 HISTORY: Covid pneumonia, abnormal chest x-ray TECHNIQUE: Single frontal view of the chest is obtained. FINDINGS: Pleural parenchymal changes are similar to prior exam. Aorta is dense. Heart is obscured. No evident pneumothorax or pleural effusion. IMPRESSION: Correlate for pneumonia, edema
[2020-11-13] MEDS: PIPERACILLIN-TAZOBACTAM 3.375 GM in SODIUM CHLORIDE 0.9% 100 ML IVPB SCH ×2 (09:33→15:50)
[2020-11-13] MEDS: INSULIN DETEMIR (LEVEMIR) 100 UNIT/ML SYR SQ SCH (09:33)
[2020-11-13] MEDS: FAMOTIDINE 20 MG/2 ML VIAL IV SCH ×2 (09:34→21:14)
[2020-11-13] MEDS: ZINC SULFATE 220 MG CAP PO SCH (09:35)
[2020-11-13] MEDS: TAMSULOSIN 0.4 MG CAP.ER.24H PO SCH (09:35)
[2020-11-13] MEDS: ATORVASTATIN 40 MG TAB PO SCH (09:35)
[2020-11-13] MEDS: CITALOPRAM HYDROBROMIDE 10 MG TAB PO SCH (09:35)
[2020-11-13] MEDS: ASPIRIN 325 MG TAB PO SCH (09:35)
[2020-11-13] MEDS: ENOXAPARIN 80 MG/0.8 ML SYRINGE SQ SCH ×2 (09:37→21:25)
--- NOTE | 2020-11-13 10:49 | PN ---
PROGRESS NOTE PULMONARY/CRITICAL CARE PROGRESS NOTE: DATE OF SERVICE: November 13, 2020. Critical care time greater than 30 minutes. This is a 70-year-old gentleman who was admitted back on 11/07. He came in with a positive COVID test and had some minor pulmonary issues, but mostly at that time had gastrointestinal issues. He had nausea, vomiting, abdominal pain, etc. Subsequent to that, unfortunately, he developed worsening respiratory symptoms including shortness of breath. He was moved to the ICU on November 11. Currently, he remains on BiPAP at 16/8 and 100 percent. He is getting saline at 75 mL an hour. Today, we are going to increase his Lovenox because we are concerned about a hypercoagulable state induced by the COVID infection. We will check a procalcitonin level because he has more dense consolidation in the left lung. In addition, we will add some antibiotics empirically, i.e. Zosyn. The patient is a DNR. He does not want to be on the ventilator. We discussed that with him yesterday. We also let the family know. They were in agreement. He should be done with his remdesivir after today's dose. PHYSICAL EXAMINATION: VITAL SIGNS: Current vital signs are reviewed. His temperature is 98.7, with a heart rate of 64, respiratory rate in the mid 30s, blood pressure 150/87, mean 108 and saturations in the high 80s. Appears quite tachypneic and dyspneic. HEENT: Examination is grossly unremarkable. BiPAP mask in place. NECK: Supple. Full range of motion. No adenopathy. Neck veins are flat. CARDIOVASCULAR: Examination reveals regular rhythm and rate. Heart rate mid 60s. S1, S2 normal. LUNGS: Reveal diffuse coarse rhonchi. There are crackles bilaterally. Breath sounds are diminished. ABDOMEN: Soft. Bowel sounds are heard. EXTREMITIES: Intact. No edema. SKIN: Without rash. NEUROLOGIC: Examination is nonfocal. LABS: Reviewed. White count 12, hemoglobin 14.2, hematocrit 41.1, platelet count 329,000. D- dimer 5.67. Sodium 140, potassium 3.7, chloride 109, CO2 27, anion gap is 4. BUN and creatinine were 25 and 0.61. C-reactive protein 186.4. LDH 1791. Microbiology currently is all negative. IMAGING: The most recent chest x-ray dated November 13 shows diffuse bilateral patchy infiltrates. There is more dense consolidation noted in the left lower lobe. CURRENT MEDICATIONS: Reviewed. The patient is on Tylenol, vitamin C, aspirin, Lipitor, vitamin D3, Celexa, Lovenox, Zetia, Pepcid, Dilaudid, insulin, Ativan, losartan, melatonin, Solu-Medrol, metoprolol, morphine, Narcan, Zofran, Zosyn, potassium replacement, saline IV, Flomax, and zinc. ASSESSMENT: 1. Acute hypoxemic respiratory failure secondary to COVID-19 pneumonia/pneumonitis, with progression of disease, since initially, his symptoms were primarily GI in nature. 2. Febrile illness, secondary to #1. 3. Elevated inflammatory markers secondary to COVID-19 pneumonia. 4. Coronary artery disease with previous bypass grafting. 5. Hyperlipidemia, by history. 6. Essential hypertension. 7. Diabetes mellitus. 8. Obesity. 9. Benign prostatic hypertrophy. PLAN: The patient's BiPAP settings were changed from 12/8 to 16/8. He is currently on 100%. Saturations are in the high 80s. He is finishing up his Remdesivir today. He is on high-dose corticosteroids. He is receiving vitamin C, vitamin D3, and zinc. No additional recommendations are made. The patient was adamant about not be on the mechanical ventilator. We discussed this with him and his family. Both are in agreement. No additional recommendations are made. The patient will have his Lovenox increased today. We added Zosyn empirically and checked a procalcitonin level. Critical care time greater than 30 minutes. MMODL / IJN: [id number] /
[2020-11-13] MEDS: FAMOTIDINE 20 MG TAB PO SCH (11:34)
[2020-11-13] MEDS: ALPRAZolam 0.25 MG TAB PO PRN ×2 (11:56→21:14)
[2020-11-13] MEDS: EZETIMIBE 10 MG TAB PO SCH (11:56)
[2020-11-13] MEDS: CHOLECALCIFEROL 1,000 UNIT TAB PO SCH (11:56)
[2020-11-13] MEDS: METOPROLOL TARTRATE 50 MG TAB PO SCH ×2 (11:56→21:15)
[2020-11-13] MEDS: ASCORBIC ACID 500 MG TAB PO SCH (11:56)
[2020-11-13] MEDS: LOSARTAN 50 MG TAB PO SCH (11:57)
[2020-11-13 12:08] LABS: Glucose,Whole Blood 237 mg/dL (75-99)
[2020-11-13 17:06] LABS: Glucose,Whole Blood 185 mg/dL (75-99)
[2020-11-13] MEDS: MELATONIN 5 MG TABLET PO SCH (21:14)
--- NOTE | 2020-11-13 21:53 | PN ---
PROGRESS NOTE DATE OF SERVICE: 11/13/2020 REASON FOR FOLLOWUP: COVID-19 pneumonia. INTERVAL HISTORY: The patient is currently afebrile. The patient remains BiPAP-dependent. The patient is hemodynamically stable, not on pressor support. Denies having any chest pain. Did have a cough, not bringing up any sputum. No vomiting or any diarrhea has been reported. PHYSICAL EXAMINATION: Blood pressure 139/73 with a pulse of 65, temperature 98.4. He is 88% on 100% BiPAP. General description is an elderly male lying in bed in no distress. RESPIRATORY SYSTEM: Unlabored breathing with decreased intensity of breath sounds. No wheeze. HEART: S1, S2. Regular rate and rhythm. ABDOMEN: Soft. No tenderness. LABS: Hemoglobin is 14.8, white count 12.0. D-dimer is up to 5.67. Did have worsening of his inflammatory markers. DIAGNOSTIC IMPRESSION AND PLAN: Patient with acute respiratory failure which is multifactorial in this patient who did have a component of COVID-19 pneumonia and concern for possible cytokine storm. The patient is currently on Solu-Medrol and Lovenox. Dose has been adjusted up because of his elevated D-dimer; to continue along with respiratory support. Monitor his clinical course closely. Overall prognosis remains guarded. MMODL / IJN: [id number] /
[2020-11-14 00:31] LABS: Glucose,Whole Blood 171 mg/dL (75-99)
[2020-11-14] MEDS: INSULIN ASPART (NovoLOG) 100 UNIT/ML VIAL SQ SCH ×2 (00:34→06:25)
[2020-11-14] MEDS: methylPREDNISolone SOD SUCCI 125 MG/2 ML VIAL IV SCH ×2 (00:34→06:24)
[2020-11-14] MEDS: PIPERACILLIN-TAZOBACTAM 3.375 GM in SODIUM CHLORIDE 0.9% 100 ML IVPB SCH (00:34)
--- NOTE | 2020-11-14 02:05 | P.PN ---
Subjective Progress Note Date: 11/13/20 70-year-old male came in with complaints of shortness of breath presently on 2 L of oxygen. Patient was having symptoms since last Tuesday and was diagnosed with Covid 19 last Tuesday. Patient is still having fevers. Patient was having nausea vomiting as well as diarrhea which improved at this time. Patient is comparing of cough and generalized body aches. 11/09/2020 Presently on 4 L of oxygen although feels better. Patient is presently on Remdesivir day 2 11/10/2020 Patient is seen and evaluated in follow-up and had some difficulty breathing and shortness of breath in the middle of the night and is currently on nonrebreather at 15 L and 88%. Patient continues to have dyspnea with any exertion. Pulmonary is following and patient is currently on remdesivir and will also continue with Lovenox, zinc, dexamethasone, and vitamin C supplements. Continue to monitor blood sugars closely as they are elevated most likely due to steroid and will continue with sliding scale at this time. Will repeat a.m. chest x-ray. 11/11/2020 Patient is seen in follow-up and continues to be severely dyspneic with any exertion currently sitting up in the chair and is on 15 L nonrebreather along with nasal cannula. pulmonary is following. Currently receiving Remdesivir and is maintained on Lovenox, vitamin C and D, zinc supplements and will continue at this time. Patient's chest x-ray shows bilateral airspace disease again noted. Blood sugar slightly elevated will continue sliding scale. Chest x-ray in the morning. Instructed the patient to increase activity as tolerated and sit up in the chair more often throughout the day. 11/12/2020 Patient is seen and evaluated and follow-up and was recently moved to the ICU for close monitoring as respiratory status deteriorated and is on 100% BiPAP. Pulmonary following closely. Patient is also receiving remdesivir and has also received 2 units of convalescent plasma. Patient continues to be extremely restless and anxious and severely dyspneic even while on the BiPAP. Patient has also made the wish and request a being a full code without mechanical ventilation after discussing with his family. He does not want to be on life support. D-dimer has gone up to 2.04. Patient is maintained on Lovenox. Chest x-ray from this morning shows bilateral airspace disease with some possible improvement in aeration. Blood sugars continue to be elevated and will continue with long-acting along with sliding scale and monitor closely. Lactate dehydrogenase is substantially elevated at 1969 from 426 yesterday along with CRP which is 84.3 as compared to 10 yesterday. Will continue to monitor closely as patient's prognosis is extremely guarded. 11/13/2020 Patient currently being monitored closely in the ICU and remains on the bipap at 100%. Patient continues to have some anxiety and xanax ordered. Patient continues to be extremely dyspneic with any exertion. Patient is fatigued. Labored respirations. Blood sugars continue to be elevated and maintained on sliding scale along with long acting and will increase to 20 units daily. Domitila ent is maintained on IV steroids along with increased dose of Lovenox as d-dimer is titrating up. Inflammatory markers elevated as well. Multiple medical consultations following. Prognosis remains guarded. Constitutional: Reports fatigue, and anxiety Cardio vascular: denied any chest pain, palpitations Gastrointestinal denied any nausea vomiting Pulmonary: Reports extreme shortness of breath Neurologic denied any new focal deficits All inpatient medications were reviewed and appropriate changes in these medications as dictated in the interval history and assessment and plan. Active Medications Acetaminophen (Acetaminophen Tab 325 Mg Tab) 650 mg PO Q6HR PRN PRN Reason: Mild Pain or Fever > 100.5 Last Admin: 11/12/20 11:29 Dose: 650 mg Documented by: Alprazolam (Alprazolam 0.25 Mg Tab) 0.25 mg PO TID PRN PRN Reason: Anxiety Last Admin: 11/13/20 11:56 Dose: 0.25 mg Documented by: Ascorbic Acid (Ascorbic Acid 500 Mg Tab) 1,000 mg PO DAILY [facility] Last Admin: 11/13/20 11:56 Dose: 1,000 mg Documented by: Aspirin (Aspirin 325 Mg Tab) 325 mg PO DAILY [facility] Last Admin: 11/13/20 09:35 Dose: 325 mg Documented by: Atorvastatin Calcium (Atorvastatin 40 Mg Tab) 40 mg PO DAILY [facility] Last Admin: 11/13/20 09:35 Dose: 40 mg Documented by: Cholecalciferol (Cholecalciferol 1,000 Unit Tab) 1,000 unit PO DAILY [facility] Last Admin: 11/13/20 11:56 Dose: 1,000 unit Documented by: Citalopram Hydrobromide (Citalopram Hydrobromide 10 Mg Tab) 10 mg PO DAILY [facility] Last Admin: 11/13/20 09:35 Dose: 10 mg Documented by: Ezetimibe (Ezetimibe 10 Mg Tab) 10 mg PO DAILY [facility] Last Admin: 11/13/20 11:56 Dose: 10 mg Documented by: Enoxaparin Sodium (Enoxaparin 80 Mg/0.8 Ml Syringe) 80 mg SQ Q12HR [facility] Last Admin: 11/13/20 09:37 Dose: 80 mg Documented by: Famotidine (Famotidine 20 Mg/2 Ml Vial) 20 mg IV Q12HR [facility] Last Admin: 11/13/20 09:34 Dose: 20 mg Documented by: Hydromorphone HCl (Hydromorphone 0.5 Mg/0.5 Ml Syringe) 0.5 mg IVP Q3HR PRN PRN Reason: Moderate Pain Sodium Chloride (Saline 0.9%) 1,000 mls @ 75 mls/hr IV .[id number] [facility] Last Admin: 11/13/20 07:11 Dose: 75 mls/hr Documented by: Piperacillin Sod/Tazobactam (Sod 3.375 gm/ Sodium Chloride) 100 mls @ 25 mls/hr IVPB Q8HR [facility] Last Admin: 11/13/20 09:33 Dose: 25 mls/hr Documented by: Insulin Aspart (Insulin Aspart (Novolog) 100 Unit/Ml Vial) 0 unit SQ ACHS [facility]; Protocol Last Admin: 11/13/20 12:43 Dose: 8 unit Documented by: Insulin Detemir (Insulin Detemir (Levemir) 100 Unit/Ml Syr) 10 unit SQ DAILY@0700 [facility] Last Admin: 11/13/20 09:33 Dose: 10 unit Documented by: Lorazepam (Lorazepam 2 Mg/Ml Inj) 0.5 mg IV Q6HR PRN PRN Reason: Anxiety Losartan Potassium (Losartan 50 Mg Tab) 50 mg PO DAILY [facility] Last Admin: 11/13/20 11:57 Dose: Not Given Documented by: Melatonin (Melatonin 5 Mg Tablet) 5 mg PO HS [facility] Last Admin: 11/12/20 20:36 Dose: 5 mg Documented by: Methylprednisolone Sodium Succinate (Methylprednisolone Sod Succi 125 Mg/2 Ml Vial) 60 mg IV Q6HR [facility] Last Admin: 11/13/20 11:55 Dose: 60 mg Documented by: Metoprolol Tartrate (Metoprolol Tartrate 50 Mg Tab) 50 mg PO BID [facility] Last Admin: 11/13/20 11:56 Dose: Not Given Documented by: Miscellaneous Information (Potassium Replacement Protocol 1 Each Misc) 1 each MISCELLANE DAILY PRN; Protocol PRN Reason: Per Protocol Morphine Sulfate (Morphine Sulfate 4 Mg/Ml Syringe) 4 mg IV Q4HR PRN PRN Reason: Severe Pain Naloxone HCl (Naloxone 0.4 Mg/Ml 1 Ml Vial) 0.2 mg IV Q2M PRN PRN Reason: Opioid Reversal Ondansetron HCl (Ondansetron 4 Mg/2 Ml Vial) 4 mg IVP Q8HR PRN PRN Reason: Nausea And Vomiting Tamsulosin HCl (Tamsulosin 0.4 Mg Cap.Er.24h) 0.4 mg PO DAILY [facility] Last Admin: 11/13/20 09:35 Dose: 0.4 mg Documented by: Zinc Sulfate (Zinc Sulfate 220 Mg Cap) 220 mg PO DAILY [facility] Last Admin: 11/13/20 09:35 Dose: 220 mg Documented by: Objective - Vital Signs Vital signs: Vital Signs Temp 98.8 F 11/13/20 12:00 Pulse 60 11/13/20 15:00 Resp 32 H 11/13/20 15:00 BP 128/60 11/13/20 15:00 Pulse Ox 88 L 11/13/20 15:00 Intake & Output 11/12/20 11/13/20 11/13/20 18:59 06:59 18:59 Intake Total 2045 825 750 Output Total 893 750 375 Balance 1152 75 375 Weight 114.3 kg 116.1 kg Intake: IV 975 825 450 Sodium Chloride 0.9% 1, 975 825 450 000 ml @ 75 mls/hr IV . [id number] [facility] Rx#:[id number] Intake, IV Titration 250 300 Amount Piperacillin-Tazobactam 3 100 .375 gm In Sodium Chloride 0.9% 100 ml @ 25 mls/hr IVPB Q8HR [facility] Rx# :[id number] Potassium Chloride 10 meq 200 In Water For Injection 1 100ml.bag @ 100 mls/hr IVPB Q1H [facility] Rx#: [id number] Remdesivir 100 mg In 250 Sodium Chloride 0.9% 250 ml @ 250 mls/hr IVPB DAILY@1300 [facility] Rx#: [id number] Blood Product 820 Ffp Pher Conval Covid19 202 Acda 1 Unit [id number] Ffp Pher Conval Covid19 218 Acda 2 Unit [id number] Output: Urine 893 750 375 Other: Voiding Method Indwelling Catheter Indwelling Catheter Indwelling Catheter - Exam GENERAL: The patient is alert and oriented x3, anxious, restless. Well developed, well nourished. Continued on BiPAP at 100%. Temp is 98.8F, pulse is 60, respirations are 32, blood pressures 128/60, oxygen saturation is 85-88 % on BiPAP at 100% HEENT: Pupils are round and equally reacting to light. EOMI. No scleral icterus. No conjunctival pallor. Normocephalic, atraumatic. No pharyngeal erythema. No thyromegaly. CARDIOVASCULAR: S1 and S2 muffled PULMONARY: Diminished breath sounds bilaterally with a few scattered rhonchi noted ABDOMEN: Soft, nontender, nondistended, normoactive bowel sounds. No palpable organomegaly. MUSCULOSKELETAL: No joint swelling or deformity. EXTREMITIES: No cyanosis, clubbing, or pedal edema. NEUROLOGICAL: Gross neurological examination did not reveal any focal deficits. SKIN: No rashes. - Labs CBC & Chem 7: 11/13/20 05:22 11/13/20 05:22 Labs: Abnormal Lab Results - Last 24 Hours (Table) 11/12/20 11/12/20 11/12/20 Range/Units 05:52 17:18 17:21 WBC (3.8-10.6) k/uL Neutrophils # (1.3-7.7) k/uL Lymphocytes # (1.0-4.8) k/uL D-Dimer (<0.60) mg/L FEU ABG pO2 48 L* (83-108) mmHg Chloride (98-107) mmol/L BUN (9-20) mg/dL Creatinine (0.66-1.25) mg/dL Glucose (74-99) mg/dL POC Glucose (mg/dL) 226 H 241 H (75-99) mg/dL Calcium (8.4-10.2) mg/dL Lactate Dehydrogenase (313-618) U/L C-Reactive Protein (<10.0) mg/L 1211/13/20 11/13/20 Range/Units 20:14 05:22 05:22 WBC 12.0 H (3.8-10.6) k/uL Neutrophils # 11.1 H (1.3-7.7) k/uL Lymphocytes # 0.3 L (1.0-4.8) k/uL D-Dimer (<0.60) mg/L FEU ABG pO2 (83-108) mmHg Chloride 109 H (98-107) mmol/L BUN 25 H (9-20) mg/dL Creatinine 0.61 L (0.66-1.25) mg/dL Glucose 191 H (74-99) mg/dL POC Glucose (mg/dL) 194 H (75-99) mg/dL Calcium 7.9 L (8.4-10.2) mg/dL Lactate Dehydrogenase 1791 H (313-618) U/L C-Reactive Protein 186.4 H (<10.0) mg/L 11/13/20 11/13/20 11/13/20 Range/Units 05:22 07:01 12:06 WBC (3.8-10.6) k/uL Neutrophils # (1.3-7.7) k/uL Lymphocytes # (1.0-4.8) k/uL D-Dimer 5.67 H (<0.60) mg/L FEU ABG pO2 (83-108) mmHg Chloride (98-107) mmol/L BUN (9-20) mg/dL Creatinine (0.66-1.25) mg/dL Glucose (74-99) mg/dL POC Glucose (mg/dL) 192 H 237 H (75-99) mg/dL Calcium (8.4-10.2) mg/dL Lactate Dehydrogenase (313-618) U/L C-Reactive Protein (<10.0) mg/L Microbiology - Last 24 Hours (Table) 11/07/20 15:24 Blood Culture - Preliminary Blood No Growth after 120 hours 11/07/20 15:18 Blood Culture - Preliminary Blood No Growth after 120 hours Assessment and Plan Assessment: -Shortness of breath acute hypoxic respiratory failure: Secondary to covid 19 pneumonia. -Type 2 diabetes mellitus: With hyperglycemia -Hyperlipidemia -Hypertension -Coronary artery disease with bypass surgery in the past -DVT prophylaxis: Lovenox -GI prophylaxis Pepcid Plan: Continue current medications, management, and symptomatic treatment Continue to monitor blood sugars and treat with sliding scale along with long-acting at this time. Long acting increased to 20 units daily. Patient remains in the ICU for close monitoring and currently maintained on BiPAP at 100%. Patient continues to be extremely dyspneic with any exertion and is anxious. Inflammatory markers elevated. Patient is currently receiving Remdesivir and has also received 2 units of convalescent plasma. Will repeat a.m. labs. Pulmonary is following and infectious disease following. D-dimer is elevated today and patient is maintained on Lovenox and was increased. Patient to continue on IV steroids and vitamin c, d, and zinc supplements. Due to multiple complex medical issues, prognosis is extremely guarded. Further recommendations to follow.
[2020-11-14 04:12] LABS: Basophils # (A) 0.1 k/uL (0-0.2); Basophils % (A) 0 %; Eosinophils % (A) 0 %; HCT 42.2 % (39.0-53.0); HGB 14.4 gm/dL (13.0-17.5); Lymphocytes # (A) 0.2 k/uL (1.0-4.8); Lymphocytes % (A) 2 %; MCHC 34.2 g/dL (31.0-37.0); MCV 87.6 fL (80.0-100.0); Mean Platelet Volume 7.4; Monocytes # (A) 0.4 k/uL (0-1.0); Monocytes % (A) 3 %; Neutrophils # (A) 11.1 k/uL (1.3-7.7); Neutrophils % (A) 93 %; Platelet Count 222 k/uL (150-450); RBC 4.82 m/uL (4.30-5.90); RDW 13.2 % (11.5-15.5); WBC 11.9 k/uL (3.8-10.6)
[2020-11-14 04:26] LABS: ALT 32 U/L (4-49); AST 30 U/L (17-59); African American GFR (CKD) >90 (>60 ml/min/1.73 sqM); Albumin 2.4 g/dL (3.5-5.0); Alkaline Phosphatase 80 U/L (38-126); Anion Gap 3 mmol/L; Blood Urea Nitrogen 29 mg/dL (9-20); Calcium 7.7 mg/dL (8.4-10.2); Carbon Dioxide 27 mmol/L (22-30); Chloride 109 mmol/L (98-107); Glucose 205 mg/dL (74-99); Non-African American GFR(CKD) >90 (>60 ml/min/1.73 sqM); Potassium 3.5 mmol/L (3.5-5.1); Sodium 139 mmol/L (137-145); Total Bilirubin 0.7 mg/dL (0.2-1.3); Total Protein 5.5 g/dL (6.3-8.2)
[2020-11-14 04:40] LABS: C Reactive Protein 139.7 mg/L (<10.0)
[2020-11-14 05:49] LABS: Glucose,Whole Blood 245 mg/dL (75-99)
[2020-11-14] MEDS: POTASSIUM CHLORIDE ER 20 MEQ TAB.ER PO SCH ×2 (06:23→07:14)
--- NOTE | 2020-11-14 06:51 | XR ---
EXAMINATION TYPE: XR chest 1V portable DATE OF EXAM: 11/14/2020 CLINICAL HISTORY: Difficulty breathing and covid pneumonia progress study. TECHNIQUE: Single AP portable upright view of the chest is obtained. COMPARISON: Chest x-ray from one day earlier and older studies. FINDINGS: Persistent cardiomegaly with atherosclerotic aorta and surgical clips left suprahilar daryl on. Background chronic parenchymal changes with diffuse left lung opacities sparing the apex. More fa int right-sided reticulonodular opacities redemonstrated. No pleural effusion or pneumothorax seen bi laterally. IMPRESSION: Cardiomegaly with prominent left lung infiltrates and more faint right-sided infiltrates redemonstrated. No significant change from one day earlier.
[2020-11-14] MEDS ORDERED: INSULIN DETEMIR (LEVEMIR) 100 UNIT/ML SYR SQ SCH (07:00)
[2020-11-14 09:37] LABS: Ferritin 600.4 ng/mL (22.0-322.0)
[2020-11-14] MEDS ORDERED: MORPHINE SULFATE 2 MG/ML SYRINGE IVP ONE (10:05)
[2020-11-14] MEDS ORDERED: LORazepam 2 MG/ML INJ IV PRN (10:05)
[2020-11-14] MEDS ORDERED: MORPHINE SULFATE 4 MG/ML SYRINGE IV PRN (10:05)
[2020-11-14] MEDS ORDERED: MORPHINE SULFATE (100 MG/2 ML) 100 MG in SODIUM CHLORIDE 0.9% 100 ML IV SCH (10:15)
[2020-11-14] MEDS ORDERED: SCOPOLAMINE 1.5MG/72HR PATCH TRANSDERM SCH (10:30)
[2020-11-14 11:07] VITALS: TEMP 97.8
--- NOTE | 2020-11-14 12:00 | PN ---
PROGRESS NOTE PULMONARY/CRITICAL CARE PROGRESS NOTE: DATE OF SERVICE: 11/14/2020 This is a 70-year-old male who was admitted to the hospital on November 07. He came in with positive COVID test and had minor pulmonary issues, but mostly at that time gastrointestinal issues. He suffers from some nausea, vomiting, abdominal pain, etc. Unfortunately, subsequent to that, he developed worsening respiratory symptoms and required transfer to the intensive care unit on the . This was this past Tuesday. Actually, I was very surprised to see him in the ICU because when we initially saw him in consultation, the patient looked relatively stable. He was not really having much in the way of respiratory issues. Currently, the patient is on BiPAP. His settings include 16/80 with 100%. Saturations are only in the high 70s, low 80s. He is getting saline at 75 mL an hour. The patient never wanted to be intubated or resuscitated. Today, I had a long conversation with his , Brook, and his daughter, Leia. His primary nurse and Dr. Rizzo were listening to the conversation on speaker phone. They agreed at that time for comfort measures. I think that is appropriate given the fact that the patient is not showing any improvement. Anyway, the patient will be made comfort measures. The only thing that they were concerned about was making sure that he was comfortable. I did explain to them that we would not do anything to hasten his but just make the dying process as comfortable as possible. They were also wanting to make sure that somebody came in, maybe a dinkey skinner, to anoint the sick as a sacrum before making him comfort measures only. PHYSICAL EXAMINATION: VITAL SIGNS: Current vital signs are reviewed. His temperature is 98.7, heart rate is 73, respiratory rate is in the mid to high 30s, blood pressure 128/81, mean 96, saturations are in the high 70s, low 80s. Appears quite tachypneic and dyspneic. HEENT: Examination is grossly unremarkable. BiPAP mask in place. NECK: Supple, full range of motion. CARDIOVASCULAR: Examination reveals regular rhythm and rate. Heart rate 73 beats per minute. LUNGS: Reveal diffuse coarse rhonchi and crackles. No wheezes. ABDOMEN: Soft. EXTREMITIES are intact. No cyanosis, clubbing, or edema. SKIN: Without rash. NEUROLOGIC: Examination is nonfocal. LAB DATA: Reviewed. White count 11.9, hemoglobin 14.4, hematocrit 42.2, platelet count 322,000. Sodium and potassium normal. Chloride 109, CO2 27, anion gap is 3. BUN and creatinine were 29 and 0.64. Calcium 7.7, ferritin 600.4. C-reactive protein 140. Microbiology including blood cultures are negative thus far. Chest x-ray done this morning shows bilateral infiltrates, with greater consolidation and involvement of the left upper lobe, left mid lung and left lower lobe. Air bronchograms are noted in the left lower lobe. CURRENT MEDICATIONS: Reviewed. He is currently on Lovenox at therapeutic doses, Pepcid, Dilaudid, insulin, Ativan, Solu-Medrol, morphine, Narcan, Zofran, Zosyn, potassium replacement, scopolamine patch, and saline IV. Unnecessary medications will be discontinued given his comfort status. ASSESSMENT: 1. Acute hypoxemic respiratory failure secondary to COVID-19 pneumonia/pneumonitis, with severe progression of disease, and inability to oxygenate the patient on BiPAP. The patient does not want to be intubated and mechanically ventilated. 2. Febrile illness, secondary to #1. 3. Elevated inflammatory markers secondary to COVID-19 pneumonia. 4. Coronary artery disease with previous bypass grafting. 5. Hyperlipidemia by history. 6. Essential hypertension. 7. Diabetes mellitus. 8. Obesity. 9. Benign prostatic hypertrophy. PLAN: On November 14, 2020 we had a long discussion with the , Brook, and the daughter Leia. They were in agreement that the patient should be made comfort measures. We will implement those orders. Unnecessary medications will be discontinued. Their only concern was to make sure the patient was comfortable. I told him that we would do nothing to hasten his . Additional recommendations and suggestions are forthcoming. Obviously, prognosis is very poor. Saturations are in the high 70s and low 80s. The patient himself never wanted to be intubated. MMODL / IJN: [id number] /
[2020-11-14] MEDS ORDERED: LORazepam 2 MG/ML INJ IV STA (12:19)
--- NOTE | 2020-11-14 13:09 | P.PN ---
Subjective Progress Note Date: 11/14/20 70-year-old male came in with complaints of shortness of breath presently on 2 L of oxygen. Patient was having symptoms since last Tuesday and was diagnosed with Covid 19 last Tuesday. Patient is still having fevers. Patient was having nausea vomiting as well as diarrhea which improved at this time. Patient is comparing of cough and generalized body aches. 11/09/2020 Presently on 4 L of oxygen although feels better. Patient is presently on Remdesivir day 2 11/10/2020 Patient is seen and evaluated in follow-up and had some difficulty breathing and shortness of breath in the middle of the night and is currently on nonrebreather at 15 L and 88%. Patient continues to have dyspnea with any exertion. Pulmonary is following and patient is currently on remdesivir and will also continue with Lovenox, zinc, dexamethasone, and vitamin C supplements. Continue to monitor blood sugars closely as they are elevated most likely due to steroid and will continue with sliding scale at this time. Will repeat a.m. chest x-ray. 11/11/2020 Patient is seen in follow-up and continues to be severely dyspneic with any exertion currently sitting up in the chair and is on 15 L nonrebreather along with nasal cannula. pulmonary is following. Currently receiving Remdesivir and is maintained on Lovenox, vitamin C and D, zinc supplements and will continue at this time. Patient's chest x-ray shows bilateral airspace disease again noted. Blood sugar slightly elevated will continue sliding scale. Chest x-ray in the morning. Instructed the patient to increase activity as tolerated and sit up in the chair more often throughout the day. 11/12/2020 Patient is seen and evaluated and follow-up and was recently moved to the ICU for close monitoring as respiratory status deteriorated and is on 100% BiPAP. Pulmonary following closely. Patient is also receiving remdesivir and has also received 2 units of convalescent plasma. Patient continues to be extremely restless and anxious and severely dyspneic even while on the BiPAP. Patient has also made the wish and request a being a full code without mechanical ventilation after discussing with his family. He does not want to be on life support. D-dimer has gone up to 2.04. Patient is maintained on Lovenox. Chest x-ray from this morning shows bilateral airspace disease with some possible improvement in aeration. Blood sugars continue to be elevated and will continue with long-acting along with sliding scale and monitor closely. Lactate dehydrogenase is substantially elevated at 1969 from 426 yesterday along with CRP which is 84.3 as compared to 10 yesterday. Will continue to monitor closely as patient's prognosis is extremely guarded. 11/13/2020 Patient currently being monitored closely in the ICU and remains on the bipap at 100%. Patient continues to have some anxiety and xanax ordered. Patient continues to be extremely dyspneic with any exertion. Patient is fatigued. Labored respirations. Blood sugars continue to be elevated and maintained on sliding scale along with long acting and will increase to 20 units daily. Domitila ent is maintained on IV steroids along with increased dose of Lovenox as d-dimer is titrating up. Inflammatory markers elevated as well. Multiple medical consultations following. Prognosis remains guarded. 11/14/2020 Patient is seen in follow-up continues to be in the ICU being closely monitored. Patient is on the BiPAP at 100% and continues to remain in no code and his wishes were not to be on a mechanical ventilator. Patient's oxygen saturations continued to deteriorate throughout the night and is currently in the 70s and low 80s on 100% BiPAP. Family was brought in his overall prognosis was poor and extremely guarded and per patient request, patient wanted to be comfort measures only once his family arrived. Pulmonary following and discuss this as well with the family in detail. Patient is currently being weaned off of the BiPAP and to continue with comfort measures only. Constitutional: Reports fatigue, and anxiety Cardio vascular: denied any chest pain, palpitations Gastrointestinal denied any nausea vomiting Pulmonary: Reports extreme shortness of breath Neurologic denied any new focal deficits All inpatient medications were reviewed and appropriate changes in these medications as dictated in the interval history and assessment and plan. Active Medications Hydromorphone HCl (Hydromorphone 0.5 Mg/0.5 Ml Syringe) 0.5 mg IVP Q3HR PRN PRN Reason: Moderate Pain Last Admin: 11/14/20 12:31 Dose: 0.5 mg Documented by: Sodium Chloride (Saline 0.9%) 1,000 mls @ 20 mls/hr IV .Q24H DANIELA Last Admin: 11/13/20 21:13 Dose: 75 mls/hr Documented by: Morphine Sulfate 100 mg/ (Sodium Chloride) 102 mls @ 1.02 mls/hr IV .Q24H DANIELA; Protocol Last Titration: 11/14/20 12:53 Dose: 90 mg/hr, 91.8 mls/hr Documented by: Lorazepam (Lorazepam 2 Mg/Ml Inj) 0.5 mg IV Q6HR PRN PRN Reason: Anxiety Lorazepam (Lorazepam 2 Mg/Ml Inj) 1 mg IV Q6HR PRN PRN Reason: Severe Anxiety Last Admin: 11/14/20 12:02 Dose: 1 mg Documented by: Morphine Sulfate (Morphine Sulfate 4 Mg/Ml Syringe) 4 mg IV Q4HR PRN PRN Reason: Severe Pain Morphine Sulfate (Morphine Sulfate 4 Mg/Ml Syringe) 4 mg IV Q15M PRN PRN Reason: Breakthrough Pain Scopolamine (Scopolamine 1.5mg/72hr Patch) 1 patch TRANSDERM Q72H [facility] Last Admin: 11/14/20 12:02 Dose: 1 patch Documented by: Objective - Vital Signs Vital signs: Vital Signs Temp 98.7 F 11/14/20 00:00 Pulse 73 11/14/20 07:00 Resp 32 H 11/14/20 07:00 BP 128/81 11/14/20 07:00 Pulse Ox 81 L 11/14/20 07:00 Intake & Output 11/13/20 11/14/20 11/14/20 18:59 06:59 18:59 Intake Total 1375 1025 75 Output Total 627 547 35 Balance 748 478 40 Weight 114.8 kg Intake: IV 975 825 75 Sodium Chloride 0.9% 1, 975 825 75 000 ml @ 75 mls/hr IV . [id number] [facility] Rx#:[id number] Intake, IV Titration 400 200 Amount Piperacillin-Tazobactam 3 200 200 .375 gm In Sodium Chloride 0.9% 100 ml @ 25 mls/hr IVPB Q8HR [facility] Rx# :[id number] Potassium Chloride 10 meq 200 In Water For Injection 1 100ml.bag @ 100 mls/hr IVPB Q1H [facility] Rx#: [id number] Output: Urine 627 547 35 Other: Voiding Method Indwelling Catheter Indwelling Catheter - Exam GENERAL: The patient is alert and oriented x3, anxious, restless. Well developed, well nourished. Continued on BiPAP at 100%. pulse is 66, respirations are 32, blood pressures 146/74, oxygen saturation is 85% on BiPAP at 100% HEENT: Pupils are round and equally reacting to light. EOMI. No scleral icterus. No conjunctival pallor. Normocephalic, atraumatic. No pharyngeal erythema. No thyromegaly. Mucosa is dry and lips are cyanotic CARDIOVASCULAR: S1 and S2 muffled PULMONARY: Diminished breath sounds bilaterally with a few scattered rhonchi noted ABDOMEN: Soft, nontender, nondistended, normoactive bowel sounds. No palpable organomegaly. MUSCULOSKELETAL: No joint swelling or deformity. EXTREMITIES: No cyanosis, clubbing, or pedal edema. NEUROLOGICAL: Gross neurological examination did not reveal any focal deficits. SKIN: No rashes. - Labs CBC & Chem 7: 11/14/20 03:41 11/14/20 03:41 Labs: Abnormal Lab Results - Last 24 Hours (Table) 11/13/20 11/13/20 11/13/20 Range/Units 05:22 12:06 17:05 WBC (3.8-10.6) k/uL Neutrophils # (1.3-7.7) k/uL Lymphocytes # (1.0-4.8) k/uL Fibrinogen (200-500) mg/dL Chloride (98-107) mmol/L BUN (9-20) mg/dL Creatinine (0.66-1.25) mg/dL Glucose (74-99) mg/dL POC Glucose (mg/dL) 237 H 185 H (75-99) mg/dL Calcium (8.4-10.2) mg/dL C-Reactive Protein (<10.0) mg/L Total Protein (6.3-8.2) g/dL Albumin (3.5-5.0) g/dL Procalcitonin 0.10 H (0.02-0.09) ng/mL 11/14/20 11/14/20 11/14/20 Range/Units 00:28 03:41 03:41 WBC 11.9 H (3.8-10.6) k/uL Neutrophils # 11.1 H (1.3-7.7) k/uL Lymphocytes # 0.2 L (1.0-4.8) k/uL Fibrinogen 572 H (200-500) mg/dL Chloride (98-107) mmol/L BUN (9-20) mg/dL Creatinine (0.66-1.25) mg/dL Glucose (74-99) mg/dL POC Glucose (mg/dL) 171 H (75-99) mg/dL Calcium (8.4-10.2) mg/dL C-Reactive Protein (<10.0) mg/L Total Protein (6.3-8.2) g/dL Albumin (3.5-5.0) g/dL Procalcitonin (0.02-0.09) ng/mL 11/14/20 11/14/20 Range/Units 03:41 05:47 WBC (3.8-10.6) k/uL Neutrophils # (1.3-7.7) k/uL Lymphocytes # (1.0-4.8) k/uL Fibrinogen (200-500) mg/dL Chloride 109 H (98-107) mmol/L BUN 29 H (9-20) mg/dL Creatinine 0.64 L (0.66-1.25) mg/dL Glucose 205 H (74-99) mg/dL POC Glucose (mg/dL) 245 H (75-99) mg/dL Calcium 7.7 L (8.4-10.2) mg/dL C-Reactive Protein 139.7 H (<10.0) mg/L Total Protein 5.5 L (6.3-8.2) g/dL Albumin 2.4 L (3.5-5.0) g/dL Procalcitonin (0.02-0.09) ng/mL Microbiology - Last 24 Hours (Table) 11/07/20 15:24 Blood Culture - Final Blood No Growth after 144 hours 11/07/20 15:18 Blood Culture - Final Blood No Growth after 144 hours Assessment and Plan Assessment: -Shortness of breath acute hypoxic respiratory failure: Secondary to covid 19 pneumonia. -Type 2 diabetes mellitus: With hyperglycemia -Hyperlipidemia -Hypertension -Coronary artery disease with bypass surgery in the past -DVT prophylaxis: Lovenox -GI prophylaxis Pepcid Plan: Continue current medications, management, and symptomatic treatment. Per family and patient request patient wants to be comfort measures only. Patient's respiratory status continues to deteriorate and is 100% on BiPAP and oxygen saturation is been in the 70s and 80s throughout the night. Comfort measure orders have been placed in pulmonary following closely as well. Multiple family members at the bedside and discussed with them in detail. Due to multiple complex medical issues, prognosis is extremely guarded. Further recommendations to follow.
[2020-11-14 15:01] VITALS: BP 148/86; PULSE 96; RESP 8
--- NOTE | 2020-11-14 19:18 | DS ---
DISCHARGE SUMMARY SUMMARY: DATE OF SERVICE: 11/14/2020. PRIMARY CAUSE OF : Acute COVID-19 infection as well as a bilateral interstitial viral pneumonia. OTHER DIAGNOSES: 1. Acute COVID-19 pneumonia with possible sepsis and acute hypoxic respiratory failure, status post BiPAP. 2. Diabetes mellitus type 2 with hyperglycemia. 3. Hyperlipidemia. 4. Hypertension. 5. History of coronary artery disease, coronary artery bypass grafting. 6. Obesity with body mass index 37.4. 7. Increased WBC. 8. Elevated inflammatory markers of Covid 19. HISTORY OF PRESENT ILLNESS: This 70-year-old gentleman with a past medical history of multiple medical problems being followed by Dr. Malcolm Wylie, was admitted with features of COVID-19 pneumonia as well as acute hypoxic respiratory failure. The patient was treated with Remdesivir, convalescent plasma and other medications. Despite aggressive treatment, the patient's condition continued to deteriorate. The patient was transferred to ICU. Patient was started on BiPAP initially. The pulse ox was 81 percent on BiPAP 100% oxygen. Case discussed by Dr. Miles and team with the family at length and the family opted for comfort measures and comfort measures were continued and the patient succumbed to the above mentioned illness. The prognosis remained extremely guarded throughout hospitalization. Please refer to the multiple progress notes and staff notes for further information. MMODL / IJN: [id number] /
[2020-11-19 01:39] LABS: LD Isoenzymes 1 18 % (19-38); LD Isoenzymes 2 32 % (30-43); LD Isoenzymes 3 25 % (16-26); LD Isoenzymes 4 11 % (3-12); LD Isoenzymes 5 14 % (3-14); Lactacte Dehydrogenase(LD) ISO 526 U/L (120-250)
--- NOTE | 2020-11-25 10:37 | CDI ---
Documentation Clarification Form Date: 11/25/2020 10:22:07 AM From: Denise TraoreLuuJJ amador, CCDS Admit Date: 11/07/2020 06:09:00 PM Patient Name: Rj Carrasquillo Visit Number: [id number] Discharge Date: 11/14/2020 02:53:00 PM ATTENTION: The Clinical Documentation Specialists (CDI) and [facility] Coding Staff appreciate your assistance in clarifying documentation. Please respond to the clarification below the line at the bottom and electronically sign. The CDI & [facility] Coding staff will review the response and follow-up if needed. Please note: Queries are made part of the Legal Health Record. If you have any questions, please contact the author of this message via ITS. Dr. Jose Luis Elkins: Cytokine Storm is documented in the 11/12 Infectious Disease Consult and subsequent Progress Note on 11/13 without further specificity. Per the 11/12 Infectious Disease Consult: "Acute COVID-19 pneumonia now noticed to have a significant worsening and possibly going into cytokine storm with significant elevated LDH and inflammatory markers." Per the 11/13 Infectious Disease Progress Note: "Patient with acute respiratory failure which is multifactorial in this patient who did have a component of COVID-19 pneumonia and concern for possible cytokine storm." History/Risk Factors: CAD, [place] status post CABG, Hypertension, Hyperlipidemia, DM II on oral meds, Non Smoker. Clinical Indicators: 70 yo male, presented to the ED from home with SOB, + COVID & Low O2, was tested for COVID 5 days prior and made aware day before that he was positive for COVID 19. Also had nausea, vomiting, diarrhea, fatigue, no appetite, mild SOB with exertion, fever & chills. VS 11/07: T 101.7^, P 89, R 18, BP 116/79, PO 89 RA - 95 2Lnc VS 11/12: T 98.3, P 62*, R 34 - 40^, BP 158/80, PO 85 100% BiPAP LAB 11/07: WBC (5.0), Neut (4.7), Lymph 0.7*, D Dimer 1.01^, Na 135*, glucose 163^, Ferritin 417.3^, LDH 842^, CRP 142.0^, Procalcitonin 0.11^ LAB 11/12: WBC 11.9^, Neut 10.6, Lymph 0.4*, D Dimer 2.04^, Cl 109^, BUN 26^, Gluc 235^, Calcium 8.1*, Phos 4.6^, LDH 1969^, CRP 84.3^. Treatment 11/07: po Tylenol, IV Dilaudid, IV fluid 20 mls/hr q24. 11/08: po Hexadrol, Lovenox sq, IV Remdesivir, Vit C. 11/09: Vit D3, Orazinc, IV MagSulfate. 11/11: IV Decadron. 11/12: Transfused Convalescent Plasma In your professional opinion, can you please clarify if Cytokine Storm was present and the specific Grade if known: Cytokine Storm: o Grade 1 o Grade 2 o Grade 3 o Grade 4 o Grade 5 o Unspecified Grade o Other, please specify o Unable to determine (Last Revision: February 2018) ____Unspecified grade MTDD
--- NOTE | 2020-11-25 10:44 | CDI ---
Documentation Clarification Form Date: 11/25/2020 10:38:31 AM From: Denise TraoreLuuJJ, CCDS Admit Date: 11/07/2020 06:09:00 PM Patient Name: Rj Carrasquillo Visit Number: [id number] Discharge Date: 11/14/2020 02:53:00 PM ATTENTION: The Clinical Documentation Specialists (CDI) and [facility] Coding Staff appreciate your assistance in clarifying documentation. Please respond to the clarification below the line at the bottom and electronically sign. The CDI & [facility] Coding staff will review the response and follow-up if needed. Please note: Queries are made part of the Legal Health Record. If you have any questions, please contact the author of this message via ITS. Dr. Govind Best: Per the 11/14 Discharge Summary: "Acute COVID-19 pneumonia with possible sepsis and acute hypoxic respiratory failure, status post BiPAP." Per the 11/13 Infectious Disease Progress Note: "Patient with acute respiratory failure which is multifactorial in this patient who did have a component of COVID-19 pneumonia and concern for possible cytokine storm." History/Risk Factors: CAD, [place] status post CABG, Hypertension, Hyperlipidemia, DM II on oral meds, Non Smoker. Clinical Indicators: 70 yo male, presented to the ED from home with SOB, + COVID & Low O2, was tested for COVID 5 days prior and made aware day before that he was positive for COVID 19. Also had nausea, vomiting, diarrhea, fatigue, no appetite, mild SOB with exertion, fever & chills. The patient was DNR and made Comfort Care on 11/14 and subsequently . VS 11/07: T 101.7^, P 89, R 18, BP 116/79, PO 89 RA - 95 2Lnc VS 11/12: T 98.3, P 62*, R 34 - 40^, BP 158/80, PO 85 100% BiPAP LAB 11/07: WBC (5.0), Neut (4.7), Lymph 0.7*, D Dimer 1.01^, Na 135*, glucose 163^, Ferritin 417.3^, LDH 842^, CRP 142.0^, Procalcitonin 0.11^ LAB 11/12: WBC 11.9^, Neut 10.6, Lymph 0.4*, D Dimer 2.04^, Cl 109^, BUN 26^, Gluc 235^, Calcium 8.1*, Phos 4.6^, LDH 1969^, CRP 84.3^. Treatment 11/07: po Tylenol, IV Dilaudid, IV fluid 20 mls/hr q24. 11/08: po Hexadrol, Lovenox sq, IV Remdesivir, Vit C. 11/09: Vit D3, Orazinc, IV MagSulfate. 11/11: IV Decadron. 11/12: Transfused Convalescent Plasma; 11/13 IV Zosyn. In your professional opinion, please clarify if these findings signify one of the following conditions, whether the condition is POA, and cause, if known: Sepsis ruled out Sepsis ruled in: o With Severe Sepsis, please specify the associated organ failure: Other, please specify Unable to determine Present on Admission o Yes o No (Last Revision: February 2018) Unable to determine MTDD
== END 2020-11-14 14:53 | disposition expired | DRG 177 ==
LOC: EC 14:40 → 6NMEDSUR 18:09 → 2SICU 11-11 17:49
PROVIDERS: ADMIT Internal Medicine; ATTEND Internal Medicine
PROC: 5A09457 Assistance with Respiratory Ventilation, 24-96 Consecutive Hours, Continuous Positive Airway Pressure (ICD-10-PCS; principal; 2020-11-11)
PROC: XW13325 Transfusion of Convalescent Plasma (Nonautologous) into Peripheral Vein, Percutaneous Approach, New Technology Group 5 (ICD-10-PCS; 2020-11-11)
PROC: XW033E5 Introduction of Remdesivir Anti-infective into Peripheral Vein, Percutaneous Approach, New Technology Group 5 (ICD-10-PCS; 2020-11-11)
DX: U07.1 COVID-19 (principal); J96.01 Acute respiratory failure with hypoxia; J12.82 Pneumonia due to coronavirus disease 2019; N40.0 Benign prostatic hyperplasia without lower urinary tract symptoms; Z66 Do not resuscitate; Z51.5 Encounter for palliative care; I25.10 Atherosclerotic heart disease of native coronary artery without angina pectoris; E11.65 Type 2 diabetes mellitus with hyperglycemia; T38.0X5A Adverse effect of glucocorticoids and synthetic analogues, initial encounter; I10 Essential (primary) hypertension; E78.5 Hyperlipidemia, unspecified; E66.9 Obesity, unspecified; F41.9 Anxiety disorder, unspecified; Z79.01 Long term (current) use of anticoagulants; Z79.82 Long term (current) use of aspirin; Z79.52 Long term (current) use of systemic steroids; Z79.84 Long term (current) use of oral hypoglycemic drugs; Z79.899 Other long term (current) drug therapy; I25.2 Old myocardial infarction; Z95.1 Presence of aortocoronary bypass graft; Z98.890 Other specified postprocedural states; Z68.37 Body mass index [BMI] 37.0-37.9, adult
CPT/HCPCS: 36415; 36600; 71045; 71275; 80048; 80053; 81001; 82728; 82805; 83520; 83605; 83615; 83625; 83735; 84100; 84145; 85025; 85027; 85379; 85384; 85610; 85730; 86140; 86850; 86900; 86901; 87040; 93005; 94660; 94760; 99285